=== PATIENT | male | born 1960 | race Caucasian/White ===

== ENCOUNTER → 2016-09-03 | Outpatient (CLI) | payer BC ==
[~2016-09-03] MED LIST: ALBU1AER9 INH; AMPH20TA2 PO; BUPR100T8 PO; FENT100D2 TD; LORA1TAB13 PO; OMEP20CA9 PO; OXYC-164 PO; TRAZ1TAB16 PO
== END | disposition home or self-care (01) ==
LOC: C.LAB1850 13:10
PROVIDERS: ATTEND Internal Medicine Endocrinology, Diabetes & Metabolism
DX: R53.83 Other fatigue (principal); E23.0 Hypopituitarism

== ENCOUNTER → 2016-09-30 | Outpatient (CLI) | payer BC ==
[~2016-09-30] MED LIST changes: +GADAVIST IV PRN
--- NOTE | 2016-09-30 18:24 | DIAGNOSTIC IMAGING REPORT ---
MRI THE PITUITARY WITHOUT AND WITH GADOLINIUM CLINICAL HISTORY: Pituitary hypogonadism COMPARISON STUDY: 09/05/2014 FINDINGS: Sagittal T1, pre and post gadolinium dynamic coronal T1, post gadolinium sagittal T1, and axial the FIESTA was obtained. The patient was administered 9.5 cc of intravenous Gadavist. The infundibulum is in the midline. The optic chiasm appears normal. The pituitary gland is not enlarged. There is an equivocal 2 mm focus of diminished enhancement involving the superior margin of the right-sided pituitary laterally. This is best visualized on the late phase postcontrast images. There is a partially empty sella. There is minor cerebellar tonsillar ectopia. There is a prominent cisterna magna. IMPRESSION: 1. No abnormalities the optic chiasm or infundibulum are visualized 2. Equivocal 2 mm focus of diminished enhancement involving the right superior lateral margin of the pituitary. This finding is of questionable clinical significance. Electronically signed by: Lorenzo Looney M.D. 09/30/2016 6:23 PM Dictated Date/Time: 09/30/2016 6:17 PM
== END | disposition home or self-care (01) ==
LOC: C.MRI 17:07
PROVIDERS: ATTEND Internal Medicine Endocrinology, Diabetes & Metabolism
DX: E23.0 Hypopituitarism (principal)

== ENCOUNTER → 2017-01-07 | Outpatient (CLI) | payer BC ==
[~2017-01-07] MED LIST changes: -GADAVIST IV PRN; +TRAZ-119 PO; -TRAZ1TAB16 PO
[2017-01-07 12:19] LABS: HEMATOCRIT 33.9 % (42-52); MEAN CELL VOLUME 85.2 fL (80-100); MEAN CORPUSCULAR HEMOGLOBIN 31.2 pg (25-34); MEAN CORPUSCULAR HGB CONC 36.6 g/dl (32-36); MEAN PLATELET VOLUME 8.7 fL (7.4-10.4); PLATELET COUNT 234 K/uL (130-400); RED BLOOD COUNT 3.98 M/uL (4.7-6.1); WHITE BLOOD COUNT 6.21 K/uL (4.8-10.8)
[2017-01-07 12:33] LABS: ESTIMATED AVERAGE GLUCOSE 186 mg/dl; HA1C FLAG Normal (Normal)
[2017-01-07 12:38] LABS: ALT/SGPT 27 U/L (12-78); BLOOD UREA NITROGEN 15 mg/dl (7-18); BUN/CREATININE RATIO 13.8 (10-20); CARBON DIOXIDE 28 mmol/L (21-32); CHLORIDE 100 mmol/L (98-107); GLUCOSE 205 mg/dl (70-99); POTASSIUM 3.8 mmol/L (3.5-5.1); SODIUM 136 mmol/L (136-145)
[2017-01-07 12:41] LABS: CALCIUM 9.2 mg/dl (8.5-10.1)
[2017-01-07 12:49] LABS: ALB/GLOB RATIO 1.1 (0.9-2); ALKALINE PHOSPHATASE 82 U/L (45-117); AST/SGOT 12 U/L (15-37)
[2017-01-11 15:25] LABS: ILGF1 Z SCORE MALE 0.1 SD (-2.0 - +2.0)
== END | disposition home or self-care (01) ==
LOC: C.LAB1850 10:30
PROVIDERS: ATTEND Internal Medicine
DX: E23.0 Hypopituitarism (principal); D35.00 Benign neoplasm of unspecified adrenal gland; G44.40 Drug-induced headache, not elsewhere classified, not intractable; E11.9 Type 2 diabetes mellitus without complications

== ENCOUNTER → 2017-12-19 | Outpatient (CLI) | payer BC ==
[2017-12-19 17:25] LABS: BASO % 1.1 %; BASO ABS # 0.07 K/uL (0-0.2); EOS % 6.4 %; EOS ABS # 0.41 K/uL (0-0.5); HEMATOCRIT 34.5 % (42-52); HEMOGLOBIN 12.9 g/dL (14.0-18.0); IG# 0.01 K/uL (0.00-0.02); LYMPH % 16.5 %; LYMPH ABS # 1.05 K/uL (1.2-3.4); MEAN CELL VOLUME 86.3 fL (80-100); MEAN CORPUSCULAR HEMOGLOBIN 32.3 pg (25-34); MEAN CORPUSCULAR HGB CONC 37.4 g/dl (32-36); MEAN PLATELET VOLUME 9.2 fL (7.4-10.4); MONO % 4.9 %; MONO ABS # 0.31 K/uL (0.11-0.59); NEUT % 70.9 %; NEUT ABS # 4.51 K/uL (1.4-6.5); PLATELET COUNT 230 K/uL (130-400); RED CELL DISTRIBUTION WIDTH CV 12.4 % (11.5-14.5); RED CELL DISTRIBUTION WIDTH SD 39.5 fL (36.4-46.3); WHITE BLOOD COUNT 6.36 K/uL (4.8-10.8)
[2017-12-19 17:52] LABS: ALBUMIN 4.1 gm/dl (3.4-5.0); ALT/SGPT 24 U/L (12-78); AST/SGOT 14 U/L (15-37); BLOOD UREA NITROGEN 16 mg/dl (7-18); CALCIUM 9.3 mg/dl (8.5-10.1); CARBON DIOXIDE 27 mmol/L (21-32); CHOLESTEROL 154 mg/dl (0-200); GLUCOSE 186 mg/dl (70-99); POTASSIUM 3.9 mmol/L (3.5-5.1); SODIUM 134 mmol/L (136-145)
[2017-12-19 17:54] LABS: ALKALINE PHOSPHATASE 102 U/L (45-117)
[2017-12-20 06:55] LABS: HEMOGLOBIN A1C 7.2 % (4.5-5.6)
== END | disposition home or self-care (01) ==
LOC: C.LAB1850 16:11
PROVIDERS: ATTEND Internal Medicine
DX: E11.9 Type 2 diabetes mellitus without complications (principal); D64.9 Anemia, unspecified

== ENCOUNTER 2023-12-19 14:47 | Inpatient (IN) ==
[2023-12-19 15:37] LABS: Basophils # (auto) 0.06 K/uL (0.00-0.20); Basophils % (auto) 1.4 %; Eosinophils # (auto) 0.13 K/uL (0.00-0.50); Eosinophils % (auto) 3.1 %; Hemoglobin 13.2 g/dl (14.0-18.0); Immature Granulocytes # (auto) 0.02 K/uL (0.01-0.20); Immature Granulocytes % (auto) 0.5 %; Lymphocytes # (auto) 0.95 K/uL (1.20-3.40); Lymphocytes % (auto) 22.9 %; Mean Corpuscular Hemoglobin 34.1 pg (25.0-34.0); Mean Corpuscular Hgb Conc 35.7 g/dL (32.0-36.0); Mean Corpuscular Volume 95.6 fL (80.0-100.0); Mean Platelet Volume 9.3 fL (9.4-12.4); Monocytes # (auto) 0.32 K/uL (0.11-0.59); Monocytes % (auto) 7.7 %; Neutrophils # (auto) 2.67 K/uL (1.40-6.50); Neutrophils % (auto) 64.4 %; Platelet Count 120 K/uL (130-400); RDW Coefficient of Variation 12.6 % (11.5-14.5); RDW Standard Deviation 44.1 fL (36.4-46.3); Red Blood Count 3.87 M/uL (4.70-6.10); White Blood Count 4.15 K/ul (4.8-10.8)
--- NOTE | 2023-12-19 15:37 | Emergency Department Note ---
Impression & Plan Acute pancreatitis, Alcohol withdrawal ED Provider Note HISTORY OF PRESENT ILLNESS: Patient is a 63-year-old male presenting with left flank pain. Patient reports that he was seen 2 weeks ago for similar symptoms. He states that his symptoms had resolved in the last 2 weeks, but starting 3 days ago he started having pain on his left mid back that wraps around his left flank. Denies any injury to the back or any falls. He denies any fevers. Denies any nausea or vomiting. Denies any diarrhea. Denies any dysuria or hematuria. He reports he took 600 mg of ibuprofen about an hour prior to arrival. He denies any bowel or bladder incontinence. Denies any numbness or tingling down his legs. Denies any leg weakness. He states the pain has been constant for the last 3 days. He states it feels like a sharp stabbing pain in his left mid back. ROS: as above PHYSICAL EXAM: Constitutional: Patient appears in no acute distress. HENT: Head: Normocephalic and atraumatic. Eyes: EOMI, PERRL Mouth/Throat: Mucous membranes moist. Neck: Trachea midline. Neck supple. Cardiovascular: RRR, No murmurs, rubs or gallops. Intact distal pulses. Pulmonary/Chest: No respiratory distress. Breath sounds clear and equal bilaterally. No wheezes or rales. Abdominal: Abdomen soft, no tenderness, rebound or guarding. Back: No midline spinal tenderness, no paraspinal tenderness, no CVA tenderness. No appreciable rashes on the back. Musculoskeletal: No edema, tenderness or deformity noted. Skin: Warm and dry. No rash, erythema, pallor or cyanosis Psychiatric: Appropriate mood and affect for situation. Neurological: Alert and keenly responsive. CN II-XII grossly intact, moving all extremities equally and fully. MDM: - Vitals signs showed hypertension - History obtained via patient. History as above. - Chronic conditions affecting care: GERD; adrenal cortical carcinoma - Differential diagnoses include, but are not limited to: UTI; pyelonephritis; ureteral stone; pancreatitis; colitis; musculoskeletal pain - Order placed for continuous cardiac monitoring. At this time, monitor showed rate of 90 bpm with normal sinus rhythm, per my interpretation. - External medical records reviewed. Primary care visit note dated 12/16/2023 was reviewed. Patient was seen in their clinic for an acute visit for postnasal drip. Also noted to have some right upper quadrant abdominal tenderness. - Laboratory workup interpreted by myself showed slight leukopenia (WBC 4.15); stable electrolytes; elevated lipase (128); elevated AST (60) - Patient given lidocaine patch and 1g IV tylenol for symptomatic management - CT abdomen/pelvis wo contrast showed mild inflammatory stranding around the pancreas concerning for potential pancreatitis. - On reassessment at 1855, patient reports he is an alcoholic and feels like he is starting to withdrawal. He is feeling nauseous and tremulous. Discussed results with the patient. He reports his pain is still present. Discussed admission to the hospital and potential formal alcohol withdrawal, which the patient would be very interested in doing formal detox. - Given 4 mg IV zofran, 1L NS and IV ativan ordered for withdrawal. - Discussion was had with case packer about patient's case and need for admission - Hospitalist consulted for admission - Patient admitted to [facility] for further evaluation and management. ASSESSMENT AND PLAN: Diagnosis: acute pancreatitis; alcohol withdrawal Plan: admit Past Med/Surg History Medical History (Updated 12/19/23 @ 19:05 by Sherri Mcmanus MD) GERD (gastroesophageal reflux disease) Adrenal cortical adenoma Surgical History History of repair of rotator cuff Left History of herniorrhaphy UMBILICAL Family History Aunt Breast cancer Father Prostate cancer Other No family history of adverse response to anesthesia Denies family history of Colon cancer Ovarian cancer Myocardial infarction Social History Smoking Status: Former smoker Tobacco Type: Cigarettes Age Started Using Tobacco: 11; Age Quit Using Tobacco: 58; packs per day: 0.25; Cigarettes Per Day: 2 CIGARETTES PER DAY at end, 2 pack a day for about 25 years; Second Hand Exposure: No; Do You Dip or Chew Tobacco: Yes (1 can every 3 days); Hx Alcohol Use: Yes Hx Substance Use: Yes (SUBOXONE PRESCRIBED) Last Used Substance Other:: was on fentanyl for chronic pain - weaned off fentanyl and put on suboxone Substance Use Type Other:: medical marijuana card Preferred Language: Barbadian Communication Ability: Effective 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: No Beliefs That Will Affect Care: None Current Living Situation: Spouse Feels Safe at Home: Yes Assistive Devices: Glasses Allergies Allergies Allergy/AdvReac Type Severity Reaction Status Date / Time labetalol Allergy Unknown Unknown Verified 12/19/23 17:39 methylprednisolone AdvReac Intermediate PSYCHOTIC Verified 12/19/23 17:39 FEATURES WITH HIGH DOSES prednisone AdvReac Intermediate PSYCHOTIC Verified 12/19/23 17:39 FEATURES WITH HIGH DOSES Home Meds Home Medications Medication Instructions Recorded Confirmed buprenorphine 8 mg-naloxone 2 mg 1 film buccal BID 08/11/18 12/19/23 sublingual film (Suboxone) cyanocobalamin (vitamin B-12) 1,000 mcg sublingual QAM 01/23/19 12/19/23 1,000 mcg sublingual tablet melatonin 10 mg capsule 10 mg PO HS PRN Sleep 10/30/19 12/19/23 bupropion HCl 100 mg tablet,12 hr 300 mg PO QAM 12/19/23 12/19/23 sustained-release clobetasol 0.05 % topical cream 1 applic topical DAILY PRN Skin 12/19/23 12/19/23 Irritation potassium gluconate 595 mg (99 mg) 595 mg PO DAILY 12/19/23 12/19/23 tablet Previous Rx's Medication Instructions Recorded albuterol sulfate 2.5 mg/3 mL 2.5 mg (3 mL) inhalation Q6H PRN 11/23/19 (0.083 %) solution for nebulization shortness of breath or wheezing #3 mL albuterol sulfate 90 mcg/actuation 2 puff inhalation Q6H PRN Wheezing 01/28/20 aerosol inhaler #6.7 grams testosterone See Rx Instructions transdermal 05/11/23 DAILY #75 grams sertraline 100 mg tablet (Zoloft) 150 mg (1.5 x 100 mg) PO QAM #135 06/02/23 tabs spironolactone 25 mg tablet 25 mg PO DAILY #90 tabs 06/09/23 (Aldactone) OneTouch Verio Flex meter #1 ea 06/10/23 (blood-glucose meter) atorvastatin 20 mg tablet 20 mg PO HS #90 tabs 07/04/23 lisinopril 40 mg tablet 40 mg PO DAILY #90 tabs 07/06/23 clonidine HCl 0.1 mg tablet 0.1 mg PO DAILY #30 tabs 08/23/23 insulin glargine 100 unit/mL (3 30 unit (0.3 mL) subcut HS #15 mL 09/12/23 mL) subcutaneous pen (Basaglar KwikPen U-100 Insulin) BD Ultra-Fine Mini Pen Needle 31 #100 ea 10/14/23 gauge x 3/16" (pen needle, diabetic) OneTouch Verio test strips (blood #50 ea 11/09/23 sugar diagnostic) fluticasone furoate 100 1 inh inhalation QAM #28 ea 11/09/23 mcg-vilanterol 25 mcg/dose inhalation powder (Breo Ellipta) tizanidine 2 mg capsule 2 mg PO Q12H PRN Muscle Spasm #180 11/17/23 caps ondansetron HCl 4 mg tablet 4 mg PO Q6H PRN nausea and 12/16/23 vomiting #15 tabs pantoprazole 40 mg tablet,delayed 40 mg PO DAILY #90 tabs 12/16/23 release Results & Data (ED) Vital Signs Vital Signs - 24 hr 12/19/23 14:55 12/19/23 15:27 12/19/23 15:29 Temperature 36.9 C Temperature Source Temporal Artery Scan Pulse Rate 87 79 80 Respiratory Rate 19 18 Respiratory Effort / Characteristics Non-Labored Spontaneous Respiratory Depth Normal Blood Pressure 162/73 H Blood Pressure Mean 102 Pulse Oximetry 96 Oxygen Delivery Method Room Air Sepsis Recent Fever Within 48 Hours No Sepsis New/Unexplained Change in Mental Status N/A Sepsis Action Taken by Nursing No Action Required 12/19/23 15:30 12/19/23 15:40 12/19/23 15:50 Temperature Temperature Source Pulse Rate 80 77 79 Respiratory Rate 22 16 15 Respiratory Effort / Characteristics Respiratory Depth Blood Pressure Blood Pressure Mean Pulse Oximetry Oxygen Delivery Method Sepsis Recent Fever Within 48 Hours Sepsis New/Unexplained Change in Mental Status Sepsis Action Taken by Nursing 12/19/23 16:00 12/19/23 16:10 12/19/23 16:30 Temperature Temperature Source Pulse Rate 82 81 82 Respiratory Rate 27 H 20 12 Respiratory Effort / Characteristics Respiratory Depth Blood Pressure Blood Pressure Mean Pulse Oximetry Oxygen Delivery Method Sepsis Recent Fever Within 48 Hours Sepsis New/Unexplained Change in Mental Status Sepsis Action Taken by Nursing 12/19/23 16:40 12/19/23 16:50 12/19/23 17:00 Temperature Temperature Source Pulse Rate 82 82 81 Respiratory Rate 17 18 14 Respiratory Effort / Characteristics Respiratory Depth Blood Pressure Blood Pressure Mean Pulse Oximetry Oxygen Delivery Method Sepsis Recent Fever Within 48 Hours Sepsis New/Unexplained Change in Mental Status Sepsis Action Taken by Nursing 12/19/23 17:10 12/19/23 17:20 12/19/23 17:25 Temperature Temperature Source Pulse Rate 81 83 Respiratory Rate 14 16 Respiratory Effort / Characteristics Respiratory Depth Blood Pressure 149/93 H Blood Pressure Mean 104 Pulse Oximetry Oxygen Delivery Method Sepsis Recent Fever Within 48 Hours Sepsis New/Unexplained Change in Mental Status Sepsis Action Taken by Nursing 12/19/23 17:25 12/19/23 17:30 12/19/23 17:40 Temperature Temperature Source Pulse Rate 81 82 81 Respiratory Rate 20 15 13 Respiratory Effort / Characteristics Respiratory Depth Blood Pressure Blood Pressure Mean Pulse Oximetry Oxygen Delivery Method Sepsis Recent Fever Within 48 Hours Sepsis New/Unexplained Change in Mental Status Sepsis Action Taken by Nursing 12/19/23 17:50 12/19/23 18:00 12/19/23 18:10 Temperature Temperature Source Pulse Rate 83 82 83 Respiratory Rate 17 18 24 Respiratory Effort / Characteristics Respiratory Depth Blood Pressure Blood Pressure Mean Pulse Oximetry Oxygen Delivery Method Sepsis Recent Fever Within 48 Hours Sepsis New/Unexplained Change in Mental Status Sepsis Action Taken by Nursing 12/19/23 18:20 12/19/23 18:30 12/19/23 18:40 Temperature Temperature Source Pulse Rate 82 85 90 Respiratory Rate 22 13 16 Respiratory Effort / Characteristics Respiratory Depth Blood Pressure Blood Pressure Mean Pulse Oximetry 95 Oxygen Delivery Method Sepsis Recent Fever Within 48 Hours Sepsis New/Unexplained Change in Mental Status Sepsis Action Taken by Nursing Laboratory Data 12/19/23 15:16 12/19/23 15:16 Lab Results 12/19/23 12/19/23 Range/Units 15:16 16:49 WBC 4.15 L (4.8-10.8) K/ul RBC 3.87 L (4.70-6.10) M/uL Hgb 13.2 L (14.0-18.0) g/dl Hct 37.0 L (42.0-52.0) % MCV 95.6 (80.0-100.0) fL MCH 34.1 H (25.0-34.0) pg MCHC 35.7 (32.0-36.0) g/dL RDW Std Deviation 44.1 (36.4-46.3) fL RDW Coeff of Sharona 12.6 (11.5-14.5) % Plt Count 120 L (130-400) K/uL MPV 9.3 L (9.4-12.4) fL Immature Gran % (Auto) 0.5 % Neut % (Auto) 64.4 % Lymph % (Auto) 22.9 % [place] % (Auto) 7.7 % Eos % (Auto) 3.1 % Baso % (Auto) 1.4 % Neut # (Auto) 2.67 (1.40-6.50) K/uL Lymph # (Auto) 0.95 L (1.20-3.40) K/uL [place] # (Auto) 0.32 (0.11-0.59) K/uL Eos # (Auto) 0.13 (0.00-0.50) K/uL Baso # (Auto) 0.06 (0.00-0.20) K/uL Immature Gran # (Auto) 0.02 (0.01-0.20) K/uL Sodium 139 (136-145) mmol/L Potassium 4.0 (3.5-5.1) mmol/L Chloride 101 (98-107) mmol/L Carbon Dioxide 29 (21-32) mmol/L Anion Gap 9 (3-11) BUN 12 (6-23) mg/dl Creatinine 0.89 (0.6-1.4) mg/dl Est Cr Clr Drug Dosing Not Reportable Est GFR ( Amer) 105.5 ml/min Est GFR (Non-Af Amer) 91.0 ml/min BUN/Creatinine Ratio 13.5 (10-20) Glucose 147 H (70-99(Fasting)) mg/dl Calcium 8.8 (8.6-10.3) mg/dl Total Bilirubin 0.7 (0.2-1.0) mg/dl AST 60 H (13-39) U/L ALT 41 (7-52) U/L Alkaline Phosphatase 78 (34-104) U/L Total Protein 7.0 (6.0-8.3) gm/dl Albumin 4.0 (3.4-5.0) gm/dl Globulin 3.0 (2.5-4.0) gm/dl Albumin/Globulin Ratio 1.3 (0.9-2) Lipase 128 H (11-82) U/L Ethyl Alcohol mg/dL 134.4 H (<10.0) mg/dl Administered Medications Discontinued Medications Acetaminophen (Ofirmev) 1,000 mg in 100 mls @ 400 mls/hr IV NOW STA Stop: 12/19/23 15:56 Last Infusion: 12/19/23 16:16 Dose: Infused Documented By: Admin: 12/19/23 15:52 Dose: 400 mls/hr Documented By: HS Lidocaine (Lidocaine 5% 1 Patch) 1 patch TD NOW STA Stop: 12/19/23 15:43 Last Admin: 12/19/23 15:52 Dose: 1 patch Documented By: HS Imaging Data Radiologist's Impression: Abdomen/Pelvis CT 12/19/23 15:[address] WITHOUT CONTRAST CT DOSE: 1353.86 mGy.cm HISTORY: Acute left-sided flank pain L flank pain TECHNIQUE: Multiaxial CT images of the abdomen and pelvis were performed without contrast. A dose lowering technique was utilized adhering to the principles of ALARA. COMPARISON STUDY: 11/13/2023, 06/15/2016 FINDINGS: Cardiomegaly with coronary arterial calcifications. Patchy groundglass and consolidative opacities in the right lung base again noted with areas of bronchial wall thickening. Mild left basilar atelectasis. There is no free air. The spleen is enlarged measuring up to 14 cm. The liver is enlarged measuring up to approximately 20 cm. Hepatic steatosis. No evidence of cirrhosis. Cholelithiasis without CT evidence of acute cholecystitis. Unremarkable adrenal glands. Mild inflammatory stranding near the mesenteric root/uncinate process. Cortical thinning of the kidneys with bilateral perinephric stranding. No hydronephrosis. Partial distention of the urinary bladder with mild wall thickening. Borderline enlarged prostate. Atherosclerosis of the aorta without aneurysm. Mild nonspecific distal esophageal wall thickening. No bowel traction. Colonic diverticulosis. Chronic likely benign fatty attenuating structure with calcifications measuring 2 cm noted adjacent to the distal descending colon. Mild colonic fecal retention. Normal appendix. No acute fracture. IMPRESSION: 1. No bowel obstruction or bowel wall thickening. 2. Right basilar opacities redemonstrated suggestive of aspiration pneumonitis. 3. Hepatosplenomegaly with hepatic steatosis. 4. Mild inflammatory stranding within the mesenteric root surrounding the uncinate process of the pancreas is likely secondary to a low-grade chronic mesenteritis. Correlate with lipase level to exclude the less likely possibility of acute pancreatitis. 5. Cholelithiasis. 6. Additional findings as above. ACT 112: Negative or not required by law. The above report was generated using voice recognition software. It may contain grammatical, syntax or spelling errors. Electronically signed by: Markus Epstein M.D. 12/19/2023 4:32 PM Discharge Plan Visit Data Chief Complaint: Back Injury/Pain Stated Complaint: BACK PAIN, UNABLE TO WALK AND STAND ED Provider: Sherri Mcmanus Discharge Problem: Acute pancreatitis, Alcohol withdrawal Forms Stand Alone Forms: My naaptol Prescriptions Prescriptions: No Action albuterol sulfate 90 mcg/actuation HFA aerosol inhaler 2 puff INHALATION Q6H PRN (Reason: Wheezing) Qty: 6.7 2RF testosterone 20.25 mg/1.25 gram (1.62 %) gel in metered-dose pump See Rx Instructions TD DAILY Qty: 75 5RF Dose Instruction: apply 3 pumps daily TD DAILY; Rx Instructions: apply 2 pumps daily 05/04/23 PDMP Queried ok to fill, TR sertraline [Zoloft] 100 mg tablet 150 mg PO QAM Qty: 135 1RF atorvastatin 20 mg tablet 20 mg PO HS Qty: 90 3RF lisinopril 40 mg tablet 40 mg PO DAILY Qty: 90 3RF clonidine HCl 0.1 mg tablet 0.1 mg PO DAILY Qty: 30 5RF insulin glargine [Basaglar KwikPen U-100 Insulin] 100 unit/mL (3 mL) insulin pen 30 unit SUBCUT HS Qty: 15 3RF (DME) pen needle, diabetic [BD Ultra-Fine Mini Pen Needle] 31 gauge x 3/16" needle See Rx Instructions .ROUTE .COMPLEX Qty: 100 1RF Dose Instruction: USE ONCE DAILY DIRECTED Rx Instructions: USE ONCE DAILY DIRECTED fluticasone furoate-vilanterol [Breo Ellipta] 100-25 mcg/dose blister with device 1 inh INH QAM Qty: 28 5RF (DME) OneTouch Verio test strips Strip See Rx Instructions .Route Qty: 50 5RF Rx Instructions: As directed to test blood sugar once a day; E11.9 tizanidine 2 mg capsule 2 mg PO Q12H PRN (Reason: Muscle Spasm) Qty: 180 1RF albuterol sulfate 2.5 mg /3 mL (0.083 %) solution for nebulization 2.5 mg INH Q6H PRN (Reason: shortness of breath or wheezing) Qty: 3 5RF cyanocobalamin (vitamin B-12) 1,000 mcg tablet, sublingual 1,000 mcg SL QAM melatonin 10 mg capsule 10 mg PO HS PRN (Reason: Sleep) spironolactone [Aldactone] 25 mg tablet 25 mg PO DAILY Qty: 90 3RF (DME) blood-glucose meter [StartSpanishuch Verio Flex meter] Misc See Rx Instructions .Route Qty: 1 0RF Rx Instructions: As directed to test blood sugar once a day; E11.9 pantoprazole 40 mg tablet,delayed release (DR/EC) 40 mg PO DAILY Qty: 90 3RF ondansetron HCl 4 mg tablet 4 mg PO Q6H PRN (Reason: nausea and vomiting) Qty: 15 0RF buprenorphine-naloxone [Suboxone] 8-2 mg Film 1 film BUCCAL BID potassium gluconate 595 mg (99 mg) Tablet 595 mg PO DAILY clobetasol 0.05 % cream 1 applic topical DAILY PRN (Reason: Skin Irritation) bupropion HCl 100 mg tablet sustained-release 12 hr 300 mg PO QAM Rx Instructions: TAKE 3 TABLETS BY MOUTH EVERY DAY IN THE MORNING Referrals Referrals: Xochitl Olmedo MD [Primary Care Provider] -
[2023-12-19] MEDS: ACETAMINOPHEN 1,000 MG/100 ML VIAL IV STA (15:52)
[2023-12-19] MEDS: LIDOCAINE 5% 1 PATCH TD STA (15:52)
[2023-12-19 15:56] LABS: Alanine Aminotransferase 41 U/L (7-52); Albumin Globulin Ratio 1.3 (0.9-2); Alkaline Phosphatase 78 U/L (34-104); Anion Gap 9 (3-11); Aspartate Aminotransferase 60 U/L (13-39); BUN Creatinine Ratio 13.5 (10-20); Bilirubin,Total 0.7 mg/dl (0.2-1.0); Blood Urea Nitrogen 12 mg/dl (6-23); Calcium 8.8 mg/dl (8.6-10.3); Carbon Dioxide 29 mmol/L (21-32); Chloride 101 mmol/L (98-107); Est GFR (African American) 105.5 ml/min; Glucose 147 mg/dl (70-99(Fasting)); Sodium 139 mmol/L (136-145)
--- NOTE | 2023-12-19 16:34 | CT Scan Report ---
ABDOMEN AND PELVIS CT WITHOUT CONTRAST CT DOSE: 1353.86 mGy.cm HISTORY: Acute left-sided flank pain L flank pain TECHNIQUE: Multiaxial CT images of the abdomen and pelvis were performed without contrast. A dose lo wering technique was utilized adhering to the principles of ALARA. COMPARISON STUDY: 11/13/2023, 06/15/2016 FINDINGS: Cardiomegaly with coronary arterial calcifications. Patchy groundglass and consolidative op acities in the right lung base again noted with areas of bronchial wall thickening. Mild left basilar atelectasis. There is no free air. The spleen is enlarged measuring up to 14 cm. The liver is enlarg ed measuring up to approximately 20 cm. Hepatic steatosis. No evidence of cirrhosis. Cholelithiasis w ithout CT evidence of acute cholecystitis. Unremarkable adrenal glands. Mild inflammatory stranding n ear the mesenteric root/uncinate process. Cortical thinning of the kidneys with bilateral perinephric stranding. No hydronephrosis. Partial dis tention of the urinary bladder with mild wall thickening. Borderline enlarged prostate. Atheroscleros is of the aorta without aneurysm. Mild nonspecific distal esophageal wall thickening. No bowel tracti on. Colonic diverticulosis. Chronic likely benign fatty attenuating structure with calcifications shelia suring 2 cm noted adjacent to the distal descending colon. Mild colonic fecal retention. Normal appen arnold. No acute fracture. IMPRESSION: 1. No bowel obstruction or bowel wall thickening. 2. Right basilar opacities redemonstrated suggestive of aspiration pneumonitis. 3. Hepatosplenomegaly with hepatic steatosis. 4. Mild inflammatory stranding within the mesenteric root surrounding the uncinate process of the dawson creas is likely secondary to a low-grade chronic mesenteritis. Correlate with lipase level to exclude the less likely possibility of acute pancreatitis. 5. Cholelithiasis. 6. Additional findings as above. ACT 112: Negative or not required by law. The above report was generated using voice recognition software. It may contain grammatical, syntax o r spelling errors. Electronically signed by: Markus Epstein M.D. 12/19/2023 4:32 PM
[2023-12-19 17:14] LABS: Lipase 128 U/L (11-82)
[2023-12-19] MEDS: SODIUM CHLORIDE 0.9% 1,000 ML IV ONE (19:21)
[2023-12-19] MEDS: THIAMINE HCL 100 MG in SYRINGE 9 ML IV SCH (19:21)
[2023-12-19] MEDS: MULTI-VITAMIN INFUSION 10 ML, THIAMINE HCL 100 MG, FOLIC ACID 1 MG in SODIUM CHLORIDE 0... IV ONE (19:21)
[2023-12-19] MEDS: FOLIC ACID 1 MG in SYRINGE 9.8 ML IV SCH (19:21)
[2023-12-19] MEDS: ONDANSETRON INJ 2 MG/ML 2 ML VIAL IV STA (19:22)
[2023-12-19] MEDS: LORazepam 1 MG in SYRINGE 0.5 ML IV PRN (19:22)
--- NOTE | 2023-12-19 19:24 | History & Physical Report ---
Date of Service December 19, 2023 Assessment & Plan (1) Alcohol withdrawal: Plan: Severe ETOH Withdrawal - Requests detox. - Etoh on admit 134.4 Patient drinking 1/5 of liquor per day for up to a year with no alcohol free days in over a year - Improved with ativan, at provider assessment is significantly tremulous and diaphoretic - Valium 10mg IV x1 frontload ordered for withdrawal sx. Up to 2 additional doses and then transition to a AWSS. If continues to worsen transferred to unit for Precedex adjunct. Considered phenobarbital for seizures/ETOH however patient had already received benzodiazepines while in the ER, patient thinks that he did well in the past as outpatient with withdrawal medications that were not phenobarbital and thinks that they may have been benzos that worked well for him several years ago. Improved after valium x1, although RR/O2 sat dropped. Will defer additional, continue awss, and if resp stable --> + librium taper - AWSS active protocol - High dose Thiamine, Folic acid, Banana bag ordered (2) Gastritis: Plan: Abdominal Pain, mesenteritis/gastritis vs pancreatitis 2/2 ETOH use - Suspect gastritis/mesenteritis with ETOH use. DDx includes etoh induced pancreatitis, although lipiase is minimally elevated for this and CT more consistent with enteritis - PPI dailys - NPO - Pepcid BID - IVFM - Advance diet as pain tolerates - Stool biofire pending (3) Acute pancreatitis: Plan: - within differential but less likely. As noted. (4) GERD (gastroesophageal reflux disease): Plan: - as noted (5) Diabetes mellitus type 2, controlled: Plan: DM2 - Glartin 30u HS dose reduced to 20u - SSI - BSG goal 110-150 (6) Arnold-Chiari malformation, type I: (7) Pneumonitis: Plan: Aspiration Pneumonitis - W/ aspiration events in the setting of etoh use - Afebrile, no leukocytosis Follow clinically if signs of pneumonia plan start Unasyn (8) Chronic pain: Plan: Hx chronic pain, opioid dependence - Continue suboxine - Continue clonidine DVT PPx: SCDs Dispo: PCU Diet: NPO, IVFM CODE: Full (9) COPD (chronic obstructive pulmonary disease): Plan: COPD - Continue inhaler/formulary equivalent - No wheezing on admission Plan DVT PPx: SCDs Dispo: PCU Diet: NPO, IVFM CODE: Full History of Present Illness Primary Care Provider: Xochitl Olmedo MD 63yo M with a PMHx of etoh abuse who presents with 2 weeks of intermittent Left abdominal and L flank pain which has worsened in the last 3 days. Ibuprofen 600mg use Feels that he is withdrawing, endorses nausea dn tremors. Requests detox. CT-A/p: 1. No bowel obstruction or bowel wall thickening. 2. Right basilar opacities redemonstrated suggestive of aspiration pneumonitis. 3. Hepatosplenomegaly with hepatic steatosis. 4. Mild inflammatory stranding within the mesenteric root surrounding the uncinate process of the pancreas is likely secondary to a low-grade chronic mesenteritis. Correlate with lipase level to exclude the less likely possibility of acute pancreatitis.5. Cholelithiasis. 6. Additional findings as above. Lipase 128 Seen at the bedside. Drinking 1/5th of liquor per day. Last time he went more than 1-2 days without ETOH was 'a very long time, over a year maybe years.' Mid left back pain or 1-2 weeks. Has not had pain like that before 2 weeks ago. No prior hisory of pancreatitis. No history of seizures. He has had withdrawal symptoms over the past few months in the mornings, that improve when he dirnks more alcohol No fever, chills, sweats Minimal cough, but has been more short of breath than normal. no chest pain or pressure. Endorses flank pain, in addition to this has some epigastric discomfort and nausea/dry heaves No diarrhea. + constipatoin Still takes clonidine for htn, and suboxone for chronic pain Hx of COPD well controlled. Quit smoking 1 month ago, smoked cigarettes for 'a very long time' about 1pack per week. Takes long acting insulin at night for DM. Started drinking again after had headaches related to a Adriana malformation and cyst, and drank because felt improved. Was seeing Dr. Yeung neurology. Allergies Allergy/AdvReac Type Severity Reaction Status Date / Time labetalol Allergy Unknown Unknown Verified 12/19/23 17:39 methylprednisolone AdvReac Intermediate PSYCHOTIC Verified 12/19/23 17:39 FEATURES WITH HIGH DOSES prednisone AdvReac Intermediate PSYCHOTIC Verified 12/19/23 17:39 FEATURES WITH HIGH DOSES Home Medications Medication Instructions Recorded Confirmed Type buprenorphine 8 mg-naloxone 2 mg 1 film buccal BID 08/11/18 12/19/23 History sublingual film (Suboxone) cyanocobalamin (vitamin B-12) 1,000 mcg sublingual QAM 01/23/19 12/19/23 History 1,000 mcg sublingual tablet melatonin 10 mg capsule 10 mg PO HS PRN Sleep 10/30/19 12/19/23 History albuterol sulfate 2.5 mg/3 mL 2.5 mg (3 mL) inhalation Q6H PRN 11/23/19 12/19/23 Rx (0.083 %) solution for nebulization shortness of breath or wheezing #3 mL albuterol sulfate 90 mcg/actuation 2 puff inhalation Q6H PRN Wheezing 01/28/20 12/19/23 Rx aerosol inhaler #6.7 grams testosterone See Rx Instructions transdermal 05/11/23 12/19/23 Rx DAILY #75 grams sertraline 100 mg tablet (Zoloft) 150 mg (1.5 x 100 mg) PO QAM #135 06/02/23 12/19/23 Rx tabs spironolactone 25 mg tablet 25 mg PO DAILY #90 tabs 06/09/23 12/19/23 Rx (Aldactone) OneTouch Verio Flex meter #1 ea 06/10/23 12/16/23 Rx (blood-glucose meter) atorvastatin 20 mg tablet 20 mg PO HS #90 tabs 07/04/23 12/19/23 Rx lisinopril 40 mg tablet 40 mg PO DAILY #90 tabs 07/06/23 12/19/23 Rx clonidine HCl 0.1 mg tablet 0.1 mg PO DAILY #30 tabs 08/23/23 12/19/23 Rx insulin glargine 100 unit/mL (3 30 unit (0.3 mL) subcut HS #15 mL 09/12/23 12/19/23 Rx mL) subcutaneous pen (Basaglar KwikPen U-100 Insulin) BD Ultra-Fine Mini Pen Needle 31 #100 ea 10/14/23 12/16/23 Rx gauge x 3/16" (pen needle, diabetic) OneTouch Verio test strips (blood #50 ea 11/09/23 12/16/23 Rx sugar diagnostic) fluticasone furoate 100 1 inh inhalation QAM #28 ea 11/09/23 12/19/23 Rx mcg-vilanterol 25 mcg/dose inhalation powder (Breo Ellipta) tizanidine 2 mg capsule 2 mg PO Q12H PRN Muscle Spasm #180 11/17/23 12/19/23 Rx caps ondansetron HCl 4 mg tablet 4 mg PO Q6H PRN nausea and 12/16/23 12/19/23 Rx vomiting #15 tabs pantoprazole 40 mg tablet,delayed 40 mg PO DAILY #90 tabs 12/16/23 12/19/23 Rx release bupropion HCl 100 mg tablet,12 hr 300 mg PO QAM 12/19/23 12/19/23 History sustained-release clobetasol 0.05 % topical cream 1 applic topical DAILY PRN Skin 12/19/23 12/19/23 History Irritation potassium gluconate 595 mg (99 mg) 595 mg PO DAILY 12/19/23 12/19/23 History tablet Past Med/Surg History Problem List (Updated 12/20/23 @ 13:01 by Joby Sanderson MD) COPD (chronic obstructive pulmonary disease) Pneumonitis Gastritis Alcohol withdrawal (Acute) Acute pancreatitis (Acute) GERD (gastroesophageal reflux disease) Chronic constipation Hypogonadotropic hypogonadism in male Diabetes mellitus type 2, controlled Hyperlipidemia Hypertension Subclinical hypothyroidism Obesity Depression with anxiety Attention deficit disorder without hyperactivity History of alcohol abuse History of drug dependence Disc degeneration, lumbar Chronic mixed headache syndrome Cervical herniated disc Arnold-Chiari malformation, type I Arachnoid cyst Anemia Chronic pain Extrinsic asthma Low back pain Post traumatic stress disorder Medical History (Updated 12/20/23 @ 13:01 by Joby Sanderson MD) Adrenal cortical adenoma Surgical History History of repair of rotator cuff Left History of herniorrhaphy UMBILICAL Family History Aunt Breast cancer Father Prostate cancer Other No family history of adverse response to anesthesia Denies family history of Colon cancer Ovarian cancer Myocardial infarction Social History Smoking Status: Former smoker Tobacco Type: Cigarettes and Smokeless Tobacco (Dip or Chew) Age Started Using Tobacco: 11; Age Quit Using Tobacco: 58; packs per day: 0.25; Cigarettes Per Day: 2 CIGARETTES PER DAY at end, 2 pack a day for about 25 years; Second Hand Exposure: No; Do You Dip or Chew Tobacco: Yes; Hx Alcohol Use: Yes Alcohol type: hard liquor Hx Substance Use: Yes (SUBOXONE PRESCRIBED) Last Used Substance Other:: was on fentanyl for chronic pain - weaned off fentanyl and put on suboxone Substance Use Type Other:: medical marijuana card Preferred Language: Taiwanese Communication Ability: Effective Manager Wound Required: No Beliefs That Will Affect Care: None Current Living Situation: Spouse and Family Feels Safe at Home: Yes Assistive Devices: Cane and Nebulizer Physical Exam Physical Exam: General: A&Ox3. NAD. Cooperative. SKin warm, moist. Tremulous HEENT: Atraumatic, normocephalic. PERLAA Pulm: CTAB A&P. -wheezes, -rales, -rhonchi. Symmetrical chest rise. No increased work of breathing. No respiratory distress. Cardiac: RRR, -mrg. Radial pulses intact and symmetrical. Abdominal: mild epigastric TTP, some LLQ pain on palp. nondistended, soft. BS present. Ext: tremulous. Moves all extremities equally Results & Data Results & Data Vital Signs (Past 12 Hours) Vital Signs Temp Pulse Resp BP Pulse Ox O2 Del Method 12/19/23 18:40 90 16 95 12/19/23 18:30 85 13 12/19/23 18:20 82 22 12/19/23 18:10 83 24 12/19/23 18:00 82 18 12/19/23 17:50 83 17 12/19/23 17:40 81 13 12/19/23 17:30 82 15 12/19/23 17:25 81 20 12/19/23 17:25 149/93 H 12/19/23 17:20 83 16 12/19/23 17:10 81 14 12/19/23 17:00 81 14 12/19/23 16:50 82 18 12/19/23 16:40 82 17 12/19/23 16:30 82 12 12/19/23 16:10 81 20 12/19/23 16:00 82 27 H 12/19/23 15:50 79 15 12/19/23 15:40 77 16 12/19/23 15:30 80 22 12/19/23 15:29 80 12/19/23 15:27 79 18 12/19/23 14:55 36.9 C 87 19 162/73 H 96 Room Air PG Care Time/CCT Total # of Minutes Spent Total Time Spent with Patient: Total time spent is greater than 50% in coordination of care (as documented) at patient's floor/unit and/or counseling patient: Coding Level of Care Code 15048 INT INP/OBS CARE 3/75MIN Diagnoses Alcohol withdrawal F10.939 Gastritis K29.70 Acute pancreatitis K85.90 GERD (gastroesophageal reflux disease) K21.9 Controlled type 2 diabetes mellitus with microalbuminuria, with long-term current use of insulin E11.29; R80.9; Z79.4 Diabetes mellitus complication detail: with microalbuminuria Diabetes mellitus complication status: with kidney complications Diabetes mellitus continuous churn buttermaker insulin use: with continuous churn buttermaker use Arnold-Chiari malformation, type I G93.5 Pneumonitis J98.4 Chronic pain G89.29 COPD (chronic obstructive pulmonary disease) J44.9 (5) Diabetes mellitus type 2, controlled Diabetes mellitus complication detail: with microalbuminuria Diabetes mellitus complication status: with kidney complications Diabetes mellitus continuous churn buttermaker insulin use: with assisted use Qualified Code(s): E11.29 - Type 2 diabetes mellitus with other diabetic kidney complication; R80.9 - Proteinuria, unspecified; Z79.4 - superintendent terminal (current) use of insulin
[2023-12-19] MEDS: cloNIDine HCL 0.1 MG TAB PO STA (19:57)
[2023-12-19] MEDS: diazePAM 5 MG/ML 10ML VIAL IV STA (20:00)
[2023-12-19] MEDS ORDERED: diazePAM 5 MG/ML 10ML VIAL IV PRN (20:03)
[2023-12-19] MEDS ORDERED: Ativan IV Alcohol Withdrawal--Active Protocol IV PRN (20:04)
[2023-12-19] MEDS ORDERED: GLUCOSE 40% GEL 15 GM TUBE PO PRN (20:14)
[2023-12-19] MEDS ORDERED: GLUCAGON FOR INJ 1 MG VIAL SQ PRN (20:14)
[2023-12-19] MEDS ORDERED: DEXTROSE 50% 50 ML SYRINGE IV PRN (20:14)
[2023-12-19] MEDS ORDERED: GLUCOSE 10 TAB/TUBE PO PRN (20:14)
[2023-12-19] MEDS ORDERED: CARBOHYDRATES FOR HYPOGLYCEMIA PO PRN (20:14)
[2023-12-19] MEDS: INSULIN ASPART PER UNIT CHARGE SC SCH (20:41)
[2023-12-19] MEDS: THIAMINE HCL 300 MG in SODIUM CHLORIDE 0.9% 50 ML IV STA (20:44)
[2023-12-19] MEDS ORDERED: POLYETHYLENE (MIRALAX) 17 GM PACK PO PRN (21:29)
[2023-12-19] MEDS ORDERED: ONDANSETRON INJ 2 MG/ML 2 ML VIAL IV PRN (21:29)
[2023-12-19] MEDS: THIAMINE HCL 500 MG in SODIUM CHLORIDE 0.9% 50 ML IV STA (21:55)
[2023-12-19] MEDS: LACTATED RINGER'S 1,000 ML IV SCH (22:01)
[2023-12-19] MEDS: BUPRENORPHINE/NALOXONE 8/2 MG TAB SL SCH (22:02)
[2023-12-19] MEDS: LANTUS PER UNIT CHARGE SQ SCH (22:02)
[2023-12-20] MEDS: LORazepam 3 MG in SYRINGE 1.5 ML IV PRN ×2 (01:26→08:25)
[2023-12-20] MEDS ORDERED: LORazepam 2 MG in SYRINGE 1 ML IV PRN (01:46)
[2023-12-20] MEDS ORDERED: LORazepam 3 MG in SYRINGE 1.5 ML IV PRN (01:46)
[2023-12-20] MEDS ORDERED: Ativan IV Alcohol Withdrawal--Active Protocol IV PRN ×2 (01:46→08:05)
[2023-12-20] MEDS ORDERED: LORazepam 1 MG in SYRINGE 0.5 ML IV PRN (01:46)
[2023-12-20 01:55] LABS: Appearance Urine Clear (Clear); Bacteria Urine Automated None Seen (None Seen); Bilirubin Urine Negative (Negative); Blood Urine Negative (Negative); Cast Urine Automated 0-2 /lpf (0-2); Color Urine Yellow; Epithelial Cell Urine Auto 0-2 /hpf (0-2); Glucose Urine UA Negative (Negative); Ketones Urine Trace (Negative); Leukocyte Esterase Urine Negative (Negative); Nitrite Urine Negative (Negative); Protein Urine Trace (Negative); RBC Urine Automated 0-2 /hpf (0-2); Specific Gravity Urine 1.022 (1.000-1.030); Urobilinogen Urine Negative (Negative); WBC Urine Automated 0-5 /hpf (0-5); pH Urine 6.5 (4.5-7.5)
[2023-12-20] MEDS: LORazepam 2 MG in SYRINGE 1 ML IV PRN ×2 (03:44→10:01)
[2023-12-20] MEDS: LORazepam 1 MG in SYRINGE 0.5 ML IV PRN ×2 (04:36→20:12)
[2023-12-20 06:06] LABS: Basophils # (auto) 0.04 K/uL (0.00-0.20); Eosinophils # (auto) 0.15 K/uL (0.00-0.50); Eosinophils % (auto) 3.9 %; Hematocrit (blood only) 36.6 % (42.0-52.0); Hemoglobin 12.9 g/dl (14.0-18.0); Immature Granulocytes # (auto) 0.03 K/uL (0.01-0.20); Immature Granulocytes % (auto) 0.8 %; Lymphocytes # (auto) 0.76 K/uL (1.20-3.40); Lymphocytes % (auto) 19.5 %; Mean Corpuscular Hemoglobin 33.3 pg (25.0-34.0); Mean Corpuscular Hgb Conc 35.2 g/dL (32.0-36.0); Mean Corpuscular Volume 94.6 fL (80.0-100.0); Mean Platelet Volume 9.4 fL (9.4-12.4); Monocytes # (auto) 0.32 K/uL (0.11-0.59); Monocytes % (auto) 8.2 %; Neutrophils # (auto) 2.59 K/uL (1.40-6.50); Neutrophils % (auto) 66.6 %; Platelet Count 109 K/uL (130-400); RDW Coefficient of Variation 12.4 % (11.5-14.5); RDW Standard Deviation 43.1 fL (36.4-46.3); Red Blood Count 3.87 M/uL (4.70-6.10); White Blood Count 3.89 K/ul (4.8-10.8)
[2023-12-20 06:58] LABS: BUN Creatinine Ratio 13.5 (10-20); Calcium 8.5 mg/dl (8.6-10.3); Creatinine Clr Calc Pharmacy 119.5 ml/min; Est GFR (African American) 113.8 ml/min; Est GFR (Non-African American) 98.2 ml/min; Potassium 3.9 mmol/L (3.5-5.1)
[2023-12-20] MEDS ORDERED: GABAPENTIN 1200MG ALCOHOL WITHDRAWAL LOAD PO STA (08:00)
[2023-12-20] MEDS: GABAPENTIN 600 MG TAB PO ONE (08:26)
[2023-12-20] MEDS: cloNIDine HCL 0.1 MG TAB PO SCH (08:29)
[2023-12-20] MEDS: lisinopril 40 MG TAB PO SCH (08:29)
[2023-12-20] MEDS: SPIRONOLACTONE 25 MG TAB PO SCH (08:29)
[2023-12-20] MEDS: buPROPion XL 300 MG TABCR PO SCH (08:29)
[2023-12-20] MEDS: SERTRALINE HCL 50 MG TABLET PO SCH (08:30)
[2023-12-20] MEDS: FLUTICASONE/VILANTEROL 100/25MCG 14 PUFFS/INHALER INH SCH (08:36)
[2023-12-20] MEDS ORDERED: FOLIC ACID 1 MG in SYRINGE 9.8 ML IV SCH (09:00)
[2023-12-20] MEDS ORDERED: THIAMINE HCL 100 MG in SYRINGE 9 ML IV SCH (09:00)
[2023-12-20] MEDS: METOPROLOL TARTRATE 1 MG/ML VIAL IV PRN (11:29)
--- NOTE | 2023-12-20 11:39 | Hospitalist Progress Note ---
Date of Service December 20, 2023 Assessment & Plan (1) Alcohol withdrawal: Plan: Severe ETOH Withdrawal on admission with patient requesting detox. - Patient drinking 1/5 of liquor per day for up to a year with no alcohol free days in over a year - Etoh on admit 134.4 - Patient was significantly tremulous and diaphoretic on admission - AWSS Ativan, gabapentin, Librium protocols - Continue thiamine and folic acid IV every morning - Continue clonidine for hypertension - Hydralazine as needed with hypertension parameters - Metoprolol as needed with tachycardia and hypertension parameters - Zofran as needed for nausea (2) Gastritis: Plan: Abdominal Pain, mesenteritis/gastritis vs pancreatitis 2/2 ETOH use - Suspect gastritis/mesenteritis with ETOH use. DDx includes etoh induced pancreatitis, although lipiase is minimally elevated for this and CT more consistent with enteritis - PPI dailys - NPO - Pepcid BID - IVFM - Advance diet as pain tolerates - Stool biofire pending, still on collected 12/20/2023 (3) Pneumonitis: Plan: Aspiration Pneumonitis - W/ aspiration events in the setting of etoh use - Afebrile, no leukocytosis - Follow clinically if signs of pneumonia, start Unasyn (4) Diabetes mellitus type 2, controlled: Plan: - Glartin 30u HS dose reduced to 20u - SSI - BSG goal 110-150 (5) COPD (chronic obstructive pulmonary disease): Plan: - Continue inhaler/formulary equivalent - No wheezing on admission (6) Chronic pain: Plan: Hx chronic pain, opioid dependence - Continue suboxine - Continue clonidine (7) Arnold-Chiari malformation, type I: Plan: Noted Plan Ordered AWSS Ativan, gabapentin, Librium protocols Closely monitored blood pressures DVT PPx: SCDs CODE STATUS: Full code Admission and Anticipated Discharge Date Admission Date: December 19, 2023 Subjective Patient seen and evaluated at bedside. He reports feeling very anxious and feels himself getting more confused as the morning progresses. He has tremors. Blood pressure elevated. After gabapentin, Librium, hydralazine added to regimen, patient stabilized and sleeping comfortably. Physical Exam Physical Exam: General: No acute distress, nondiaphoretic, well-developed, well-nourished. Positive tremors. Skin: The skin was without rashes, erythema, edema, or bruising. Cardiac: Regular rate and rhythm without murmurs gallops or rubs. Pulm: Clear to auscultation bilaterally without wheezes, rales or rhonchi. No retractions or accessory muscle use. Abdominal: Positive bowel sounds x 4. Soft, without masses or organomegaly. Mild epigastric and left-sided tenderness to palpation. Neuro: A&O x3. No focal neurological deficits. Results & Data Results & Data Vital Signs (Past 12 Hours) Vital Signs Temp Pulse Pulse Resp BP BP BP 12/20/23 11:29 104 H 161/110 H 12/20/23 11:06 37.2 C 94 H 19 161/110 H 12/20/23 10:33 37.1 C 96 H 22 164/106 H 12/20/23 09:40 37.1 C 95 H 18 194/111 H 12/20/23 08:08 98 H 190/106 H 12/20/23 07:25 36.7 C 82 15 181/111 H 12/20/23 04:28 36.9 C 77 14 181/103 H 12/20/23 03:29 36.8 C 79 18 188/110 H 12/20/23 01:55 37.0 C 72 19 159/125 H 12/20/23 01:14 37.1 C 78 19 169/107 H 12/19/23 23:37 36.8 C 94 H 25 H 171/89 H Pulse Ox O2 Del Method O2 Flow Rate 12/20/23 11:29 12/20/23 11:06 95 Room Air 12/20/23 10:33 95 Room Air 12/20/23 09:40 96 Room Air 12/20/23 08:08 12/20/23 07:25 92 Room Air 12/20/23 04:28 12/20/23 03:29 96 Room Air 12/20/23 01:55 12/20/23 01:14 12/19/23 23:37 98 Nasal Cannula 3 Laboratory Results Reviewed CBC Reviewed BMP Reviewed UA PG Care Time/CCT Total # of Minutes Spent Total Time Spent with Patient: Total time spent is greater than 50% in coordination of care (as documented) at patient's floor/unit and/or counseling patient: Coding Level of Care Code 49873 SUB INP/OBS CARE 3/50MIN Diagnoses Alcohol withdrawal F10.939 Gastritis K29.70 Pneumonitis J98.4 Controlled type 2 diabetes mellitus with microalbuminuria, with long-term current use of insulin E11.29; R80.9; Z79.4 Diabetes mellitus complication detail: with microalbuminuria Diabetes mellitus complication status: with kidney complications Diabetes mellitus [facility] insulin use: with emt intermediate use COPD (chronic obstructive pulmonary disease) J44.9 Chronic pain G89.29 Arnold-Chiari malformation, type I G93.5 (4) Diabetes mellitus type 2, controlled Diabetes mellitus complication detail: with microalbuminuria Diabetes mellitus complication status: with kidney complications Diabetes mellitus emt intermediate insulin use: with [facility] use Qualified Code(s): E11.29 - Type 2 diabetes mellitus with other diabetic kidney complication; R80.9 - Proteinuria, unspecified; Z79.4 - nursing home (current) use of insulin
[2023-12-20] MEDS ORDERED: chlordiazePOXIDE ALCOHOL WITHDRAWL 25MG PO STA (11:52)
[2023-12-20] MEDS: hydrALAZINE HCL 20 MG/ML VIAL IV PRN (12:39)
[2023-12-20] MEDS: chlordiazePOXIDE HCl 25 MG CAP PO SCH (13:16)
[2023-12-20] MEDS: GABAPENTIN 600 MG TAB PO SCH (14:05)
[2023-12-21] MEDS: GABAPENTIN 600 MG TAB PO SCH (04:19)
[2023-12-21 06:18] LABS: Basophils # (auto) 0.03 K/uL (0.00-0.20); Basophils % (auto) 0.7 %; Eosinophils # (auto) 0.15 K/uL (0.00-0.50); Eosinophils % (auto) 3.4 %; Hematocrit (blood only) 37.2 % (42.0-52.0); Hemoglobin 13.1 g/dl (14.0-18.0); Immature Granulocytes # (auto) 0.02 K/uL (0.01-0.20); Immature Granulocytes % (auto) 0.5 %; Lymphocytes # (auto) 0.91 K/uL (1.20-3.40); Lymphocytes % (auto) 20.9 %; Mean Corpuscular Hemoglobin 33.6 pg (25.0-34.0); Mean Corpuscular Hgb Conc 35.2 g/dL (32.0-36.0); Mean Corpuscular Volume 95.4 fL (80.0-100.0); Mean Platelet Volume 9.8 fL (9.4-12.4); Monocytes # (auto) 0.45 K/uL (0.11-0.59); Monocytes % (auto) 10.3 %; Neutrophils % (auto) 64.2 %; Platelet Count 127 K/uL (130-400); RDW Coefficient of Variation 12.5 % (11.5-14.5); RDW Standard Deviation 43.7 fL (36.4-46.3); White Blood Count 4.36 K/ul (4.8-10.8)
[2023-12-21 06:25] LABS: Calcium 9.3 mg/dl (8.6-10.3); Creatinine Clr Calc Pharmacy 100.9 ml/min; Est GFR (African American) 106.5 ml/min; Est GFR (Non-African American) 91.9 ml/min; Potassium 4.3 mmol/L (3.5-5.1)
[2023-12-21] MEDS: chlordiazePOXIDE HCl 25 MG CAP PO SCH (15:25)
--- NOTE | 2023-12-21 17:46 | Hospitalist Progress Note ---
Date of Service December 21, 2023 Assessment & Plan (1) Alcohol withdrawal: Plan: Severe ETOH Withdrawal on admission with patient requesting detox. - Patient drinking 1/5 of liquor per day for up to a year with no alcohol free days in over a year - Etoh on admit 134.4 - Patient was significantly tremulous and diaphoretic on admission - AWSS Ativan, gabapentin, Librium protocols - Continue thiamine and folic acid IV every morning - Continue clonidine for hypertension - Hydralazine as needed with hypertension parameters - Metoprolol as needed with tachycardia and hypertension parameters - Zofran as needed for nausea (2) Gastritis: Plan: Abdominal Pain, mesenteritis/gastritis vs pancreatitis 2/2 ETOH use - Suspect gastritis/mesenteritis with ETOH use. DDx includes etoh induced pancreatitis, although lipiase is minimally elevated for this and CT more consistent with enteritis - PPI dailys - NPO - Pepcid BID - IVFM - Advance diet as pain tolerates - Stool biofire pending, still uncollected 12/21/2023 (3) Pneumonitis: Plan: Aspiration Pneumonitis - W/ aspiration events in the setting of etoh use - Afebrile, no leukocytosis - Follow clinically if signs of pneumonia, start Unasyn (4) Diabetes mellitus type 2, controlled: Plan: - Glartin 30u HS dose reduced to 20u - SSI - BSG goal 110-150 (5) COPD (chronic obstructive pulmonary disease): Plan: - Continue inhaler/formulary equivalent - No wheezing on admission (6) Chronic pain: Plan: Hx chronic pain, opioid dependence - Continue suboxine - Continue clonidine (7) Arnold-Chiari malformation, type I: Plan: Noted Plan Closely monitored blood pressures DVT PPx: SCDs CODE STATUS: Full code Admission and Anticipated Discharge Date Admission Date: December 19, 2023 Subjective Patient seen and evaluated at bedside. He continues to have tremors. He is reports he was quite diaphoretic overnight, however that has since resolved. He is fully oriented. He verbalizes an understanding that this is the worst part and wishes to continue through detox with the hopes of being abstinent from alcohol after this. He reports that his appetite is okay and he had his breakfast and lunch so far today. He denies any abdominal or back pain today. He has no complaints at this time. Physical Exam Physical Exam: General: Positive tremors, nondiaphoretic, well-developed, well-nourished. Skin: The skin was without rashes, erythema, edema, or bruising. Cardiac: Regular rate and rhythm without murmurs gallops or rubs. Pulm: Clear to auscultation bilaterally without wheezes, rales or rhonchi. Some diminished breath sounds in the lower lobes bilaterally. No retractions or accessory muscle use. Abdominal: Positive bowel sounds x 4. Soft, without masses or organomegaly. Mild epigastric and left-sided tenderness to palpation. Neuro: A&O x3. No focal neurological deficits. Results & Data Results & Data Vital Signs (Past 12 Hours) Vital Signs Temp Pulse Pulse Resp BP BP BP 12/21/23 16:49 89 12/21/23 15:12 37.0 C 92 H 23 171/105 H 12/21/23 13:44 95 H 160/105 H 12/21/23 13:29 95 H 157/104 H 12/21/23 13:04 157/107 H 12/21/23 10:42 36.9 C 102 H 23 175/111 H 12/21/23 08:09 37.2 C 98 H 22 174/104 H 12/21/23 08:00 80 12/21/23 08:00 Pulse Ox O2 Del Method 12/21/23 16:49 12/21/23 15:12 92 Room Air 12/21/23 13:44 12/21/23 13:29 12/21/23 13:04 12/21/23 10:42 96 Room Air 12/21/23 08:09 94 Room Air 12/21/23 08:00 12/21/23 08:00 Room Air Laboratory Results Reviewed CBC Reviewed BMP PG Care Time/CCT Total # of Minutes Spent Total Time Spent with Patient: Total time spent is greater than 50% in coordination of care (as documented) at patient's floor/unit and/or counseling patient: Coding Level of Care Code 47638 SUB INP/OBS CARE 2/35MIN Diagnoses Alcohol withdrawal F10.939 Gastritis K29.70 Pneumonitis J98.4 Controlled type 2 diabetes mellitus with microalbuminuria, with long-term current use of insulin E11.29; R80.9; Z79.4 Diabetes mellitus complication detail: with microalbuminuria Diabetes mellitus complication status: with kidney complications Diabetes mellitus senior living insulin use: with motor bus driver use COPD (chronic obstructive pulmonary disease) J44.9 Chronic pain G89.29 Arnold-Chiari malformation, type I G93.5 (4) Diabetes mellitus type 2, controlled Diabetes mellitus complication detail: with microalbuminuria Diabetes mellitus complication status: with kidney complications Diabetes mellitus motor bus driver insulin use: with motor bus driver use Qualified Code(s): E11.29 - Type 2 diabetes mellitus with other diabetic kidney complication; R80.9 - Proteinuria, unspecified; Z79.4 - long-term (current) use of insulin
[2023-12-22 06:18] LABS: Basophils # (auto) 0.05 K/uL (0.00-0.20); Basophils % (auto) 1.3 %; Eosinophils # (auto) 0.15 K/uL (0.00-0.50); Eosinophils % (auto) 3.8 %; Hematocrit (blood only) 39.4 % (42.0-52.0); Hemoglobin 13.9 g/dl (14.0-18.0); Immature Granulocytes # (auto) 0.02 K/uL (0.01-0.20); Immature Granulocytes % (auto) 0.5 %; Lymphocytes # (auto) 0.74 K/uL (1.20-3.40); Lymphocytes % (auto) 18.6 %; Mean Corpuscular Hemoglobin 33.7 pg (25.0-34.0); Mean Corpuscular Hgb Conc 35.3 g/dL (32.0-36.0); Mean Corpuscular Volume 95.6 fL (80.0-100.0); Mean Platelet Volume 9.4 fL (9.4-12.4); Monocytes # (auto) 0.41 K/uL (0.11-0.59); Monocytes % (auto) 10.3 %; Neutrophils # (auto) 2.61 K/uL (1.40-6.50); Neutrophils % (auto) 65.5 %; Platelet Count 140 K/uL (130-400); RDW Coefficient of Variation 12.6 % (11.5-14.5); RDW Standard Deviation 44.2 fL (36.4-46.3); Red Blood Count 4.12 M/uL (4.70-6.10); White Blood Count 3.98 K/ul (4.8-10.8)
[2023-12-22 06:39] LABS: BUN Creatinine Ratio 9.8 (10-20); Calcium 9.8 mg/dl (8.6-10.3); Creatinine Clr Calc Pharmacy 106.4 ml/min; Est GFR (African American) 109.1 ml/min; Est GFR (Non-African American) 94.1 ml/min; Potassium 3.8 mmol/L (3.5-5.1)
[2023-12-22] MEDS: GABAPENTIN 600 MG TAB PO SCH (08:29)
[2023-12-22] MEDS: chlordiazePOXIDE HCl 25 MG CAP PO SCH (13:47)
[2023-12-22] MEDS: NICOTINE 21 MG/24 HR TDSY TD SCH (15:08)
--- NOTE | 2023-12-22 18:11 | Hospitalist Progress Note ---
Date of Service December 22, 2023 Assessment & Plan (1) Alcohol withdrawal: Plan: Severe ETOH Withdrawal on admission with patient requesting detox. - Patient drinking 1/5 of liquor per day for up to a year with no alcohol free days in over a year - Etoh on admit 134.4 - Patient was significantly tremulous and diaphoretic on admission - AWSS Ativan, gabapentin protocols - Librium 25 mg Q8H --> decrease as indicated with withdrawal improvement - Continue thiamine and folic acid IV every morning - Continue clonidine for hypertension - Hydralazine as needed with hypertension parameters - Metoprolol as needed with tachycardia and hypertension parameters - Zofran as needed for nausea - Nicotine patch for nicotine withdrawal (2) Gastritis: Plan: Abdominal Pain, mesenteritis/gastritis vs pancreatitis 2/2 ETOH use - Suspect gastritis/mesenteritis with ETOH use. DDx includes etoh induced pancreatitis, although lipiase is minimally elevated for this and CT more consistent with enteritis - PPI daily - Pepcid BID - Stool biofire pending, still uncollected 12/22/2023 (3) Pneumonitis: Plan: Aspiration Pneumonitis - W/ aspiration events in the setting of etoh use - Afebrile, no leukocytosis - Follow clinically if signs of pneumonia, start Unasyn (4) Diabetes mellitus type 2, controlled: Plan: - Glartin 30u HS dose reduced to 20u - SSI - BSG goal 110-150 (5) COPD (chronic obstructive pulmonary disease): Plan: - Continue inhaler/formulary equivalent - No wheezing on admission (6) Chronic pain: Plan: Hx chronic pain, opioid dependence - Continue suboxine - Continue clonidine (7) Arnold-Chiari malformation, type I: Plan: Noted Plan Updated patient's and daughter at bedside Ordered nicotine patch Updated Librium ordered DVT PPx: SCDs CODE STATUS: Full code Admission and Anticipated Discharge Date Admission Date: December 19, 2023 Subjective Patient seen and evaluated at bedside with and daughter. He reports some anxiety and frustration, but notes that he is doing slightly better compared to yesterday. He denies any abdominal or back pain at this time. His tremors are still present, but improved compared to yesterday. Patient given nicotine patch today. He reports he uses chewing tobacco approximately 1 can/day with a few cigarettes. Blood pressures are improving. I reviewed the results of CT abdomen and pelvis from 12/18 with patient's . All family questions and concerns were answered. Physical Exam Physical Exam: General: Positive tremors, improved. Nondiaphoretic, well-developed, well- nourished. Skin: The skin was without rashes, erythema, edema, or bruising. Cardiac: Regular rate and rhythm without murmurs gallops or rubs. Pulm: Clear to auscultation bilaterally without wheezes, rales or rhonchi. Some diminished breath sounds in the lower lobes bilaterally. No retractions or accessory muscle use. Abdominal: Positive bowel sounds x 4. Soft, without masses or organomegaly. Mild epigastric and left-sided tenderness to palpation. Neuro: A&O x3. No focal neurological deficits. Results & Data Results & Data Vital Signs (Past 12 Hours) Vital Signs Temp Pulse Pulse Resp BP Pulse Ox O2 Del Method 12/22/23 16:30 36.8 C 78 20 163/81 H 96 Nasal Cannula 12/22/23 15:37 87 12/22/23 11:26 Room Air 12/22/23 11:25 36.7 C 83 18 174/89 H 98 Oxymask 12/22/23 10:24 72 12/22/23 07:46 36.8 C 76 20 192/104 H 97 Oxymask O2 Flow Rate 12/22/23 16:30 2 12/22/23 15:37 12/22/23 11:26 12/22/23 11:25 2 12/22/23 10:24 12/22/23 07:46 2 Laboratory Results Reviewed CBC Reviewed BMP PG Care Time/CCT Total # of Minutes Spent Total Time Spent with Patient: Total time spent is greater than 50% in coordination of care (as documented) at patient's floor/unit and/or counseling patient: Coding Level of Care Code 18343 SUB INP/OBS CARE 3/50MIN Diagnoses Alcohol withdrawal F10.939 Gastritis K29.70 Pneumonitis J98.4 Controlled type 2 diabetes mellitus with microalbuminuria, with long-term current use of insulin E11.29; R80.9; Z79.4 Diabetes mellitus long-term insulin use: with long-term use Diabetes mellitus complication status: with kidney complications Diabetes mellitus complication detail: with microalbuminuria COPD (chronic obstructive pulmonary disease) J44.9 Chronic pain G89.29 Arnold-Chiari malformation, type I G93.5 (4) Diabetes mellitus type 2, controlled Diabetes mellitus long-term insulin use: with long term care social worker use Diabetes mellitus complication status: with kidney complications Diabetes mellitus complication detail: with microalbuminuria Qualified Code(s): E11.29 - Type 2 diabetes mellitus with other diabetic kidney complication; R80.9 - Proteinuria, unspecified; Z79.4 - terminal manager (current) use of insulin
[2023-12-23] MEDS: LABETALOL HCL IV 5 MG/ML 20ML IV PRN (01:43)
[2023-12-23] MEDS: OLANZapine 10 MG/2.1 ML SDV IM STA (05:29)
--- NOTE | 2023-12-23 06:00 | Communication Note ---
Date of Service: December 23, 2023 I was notified by nursing that Mr. Marsh had received Ativan 2mg IV x3 doses throughout the night due to AWSS scores of 9, this is in addition to scheduled Librium and Gabapentin as well as his prescribed Suboxone. His BP has remained elevated at approximately 180+/100+ throughout the night despite labetalol and a PRN hydralazine. I was notified by nursing at 5a.m. that Mr. Marsh had become increasingly agitated and was demanding to leave. I went to bedside and Mr. Marsh had removed his heart monitor and was trying to get dressed in his clothes from home. I asked why he wanted to leave and he stated that we are "keeping him here" and "it is humiliating", he also stated that he doesn't know what we are doing for him and "it's like a science fiction movie". Nursing at bedside recalled that he has had some hallucinations on and off. Mr. Marsh was experiencing tremors and was very restless and anxious during this encounter. AWSS score of 10 at this time. I updated the attending physician of his worsening symptoms of withdrawal and lack of response to the Ativan 2mg IV. We discussed trialing IM Zyprexa- upon discussion with Mr. Marsh about why we are trying Zyprexa, he was agreeable to an injectable medication. I ordered Zyprexa 5mg IM. Mr. Marsh tolerated this injection and after several minutes he was agreeable to remove his shoes and move his bag/clothing items off of the bed. He subsequently agreed to try to lay down in bed and rest. As Mr. Marsh was starting to settle, the powdered metal supervisor came to bedside for morning blood work- I asked for blood work to be postponed to a later time. His 6:00a.m. dose of Librium was also due at this time- I also asked his nurse to hold this medication at this time as I did not want to blood work and administering this PO medication to re-aggravate. I also ordered his IV fluids to be held at this time. If Mr. Marsh experiences additional aggravation I would administer an additional Zyprexa 5mg IM, if this is not helpful and his symptoms worsen I anticipate that he may require phenobarbital or Precedex/ICU management for withdrawal symptoms.
--- NOTE | 2023-12-23 07:33 | Hospitalist Progress Note ---
Date of Service December 23, 2023 Assessment & Plan (1) Alcohol withdrawal: Plan: Severe ETOH Withdrawal on admission with patient requesting detox. - Patient drinking 1/5 of liquor per day for up to a year with no alcohol free days in over a year - Etoh on admit 134.4 - tremulous and diaphoretic on admission IM olanzapine this AM for severe agitation, HTN, tachycardia despite high doses IV lorazepam. BP/HR improved add seroquel 25 mg q8h starting 1pm to help manage agitation. increase gabapentin back to tid AM labs delayed to avoid more agitation - reviewed bmp cbc, unremarkable - AWSS Ativan - 8 mg IV last 24h - Librium 25 mg Q8H - inc gabapentin back to 600 tid - add seroquel 25 tid - Continue thiamine and folic acid IV every morning - Continue clonidine for hypertension - Hydralazine as needed with hypertension parameters - Metoprolol as needed with tachycardia and hypertension parameters - Zofran as needed for nausea - Nicotine patch for nicotine withdrawal (2) Gastritis: Plan: Abdominal Pain, mesenteritis/gastritis vs pancreatitis 2/2 ETOH use - Suspect gastritis/mesenteritis with ETOH use. DDx includes etoh induced pancreatitis, although lipiase is minimally elevated for this and CT more consistent with enteritis - PPI daily - Pepcid BID (3) Pneumonitis: Plan: Aspiration Pneumonitis - W/ aspiration events in the setting of etoh use - Afebrile, no leukocytosis, not requiring supp O2. No e/o pneumonia at this time (4) Diabetes mellitus type 2, controlled: Plan: - glargine 20u - SSI - BSG at goal last 24h (5) COPD (chronic obstructive pulmonary disease): Plan: - Continue inhaler/formulary equivalent - No wheezing (6) Chronic pain: Plan: Hx chronic pain, opioid dependence - Continue suboxine - Continue clonidine (7) Arnold-Chiari malformation, type I: Plan: Noted Plan thrombocytopenia resolved - was caused by EtOH bone marrow suppression mild alcoholic hepatitis based on labs early this admission - resolved AM BMP, mag DVT PPx: enoxaparin CODE STATUS: Full code Admission and Anticipated Discharge Date Admission Date: December 19, 2023 Subjective IM olanzapine this AM for severe agitation, HTN. tachycardic despite high doses IV lorazepam A little better this AM, still anxious and tremulous, BP improved Physical Exam 2 Physical Exam: PHYSICAL EXAMINATION Last 24h vital signs reviewed, see documentation in flowsheet General: sitting on edge of bed HEENT: Normocephalic, atraumatic, pupils round and equal, sclerae anicteric, no conjunctival injection, moist mucus membranes Lungs: Normal respiratory effort. Clear to auscultation bilaterally. No RRW Heart: Regular rate and rhythm mildtachy, no murmurs. No JVD Abdomen: Soft, nontender, nondistended. Bowel sounds present. Extremities: Warm, dry, well-perfused. No extremity edema. Neuro: Alert and oriented x 4, face symmetric, tremulous, skin w/d, moves 4 extremities well Psych: anxious affect and normal behavior Results & Data Results & Data Vital Signs (Past 12 Hours) Vital Signs Temp Pulse Pulse Resp BP BP BP 12/23/23 03:39 24 179/102 H 12/23/23 02:00 24 170/109 H 12/23/23 02:00 77 170/109 H 12/23/23 01:43 92 H 202/125 H 12/23/23 01:40 36.6 C 93 H 24 202/125 H 12/23/23 00:09 24 196/117 H 12/22/23 23:25 37.2 C 93 H 22 188/104 H 12/22/23 20:00 12/22/23 19:42 36.9 C 87 20 170/107 H Pulse Ox O2 Del Method 12/23/23 03:39 12/23/23 02:00 93 Room Air 12/23/23 02:00 12/23/23 01:43 12/23/23 01:40 12/23/23 00:09 12/22/23 23:25 93 Room Air 12/22/23 20:00 Room Air 12/22/23 19:42 93 Room Air Laboratory Results 12/23/23 07:22 12/23/23 07:22 PG Care Time/CCT Total # of Minutes Spent Total Time Spent with Patient: Total time spent is greater than 50% in coordination of care (as documented) at patient's floor/unit and/or counseling patient: Coding Level of Care Code 03036 SUB INP/OBS CARE 3/50MIN Diagnoses Alcohol withdrawal F10.939 Gastritis K29.70 Pneumonitis J98.4 Controlled type 2 diabetes mellitus with microalbuminuria, with long-term current use of insulin E11.29; R80.9; Z79.4 Diabetes mellitus complication detail: with microalbuminuria Diabetes mellitus complication status: with kidney complications Diabetes mellitus longterm insulin use: with superintendent container terminal use COPD (chronic obstructive pulmonary disease) J44.9 Chronic pain G89.29 Arnold-Chiari malformation, type I G93.5 (4) Diabetes mellitus type 2, controlled Diabetes mellitus complication detail: with microalbuminuria Diabetes mellitus complication status: with kidney complications Diabetes mellitus superintendent container terminal insulin use: with longterm use Qualified Code(s): E11.29 - Type 2 diabetes mellitus with other diabetic kidney complication; R80.9 - Proteinuria, unspecified; Z79.4 - supervisor intermediates (current) use of insulin
[2023-12-23 08:06] LABS: Hematocrit (blood only) 39.5 % (42.0-52.0); Mean Corpuscular Hemoglobin 33.4 pg (25.0-34.0); Mean Corpuscular Hgb Conc 35.4 g/dL (32.0-36.0); Mean Corpuscular Volume 94.3 fL (80.0-100.0); Mean Platelet Volume 9.5 fL (9.4-12.4); Platelet Count 148 K/uL (130-400); RDW Coefficient of Variation 12.5 % (11.5-14.5); RDW Standard Deviation 43.3 fL (36.4-46.3); Red Blood Count 4.19 M/uL (4.70-6.10); White Blood Count 5.68 K/ul (4.8-10.8)
[2023-12-23 08:14] LABS: BUN Creatinine Ratio 12.2 (10-20); Calcium 10.1 mg/dl (8.6-10.3); Creatinine Clr Calc Pharmacy 106.4 ml/min; Est GFR (African American) 109.1 ml/min; Est GFR (Non-African American) 94.1 ml/min; Potassium 3.9 mmol/L (3.5-5.1)
[2023-12-23] MEDS: GABAPENTIN 600 MG TAB PO SCH (08:20)
[2023-12-23] MEDS: QUEtiapine FUMARATE 25 MG TABLET PO SCH (15:00)
[2023-12-23] MEDS ORDERED: chlordiazePOXIDE HCl 5 MG CAP PO SCH (18:00)
[2023-12-23] MEDS ORDERED: GABAPENTIN 600 MG TAB PO SCH (20:00)
[2023-12-24 06:03] LABS: BUN Creatinine Ratio 12.8 (10-20); Calcium 9.7 mg/dl (8.6-10.3); Creatinine Clr Calc Pharmacy 80.1 ml/min; Est GFR (African American) 83.3 ml/min; Est GFR (Non-African American) 71.9 ml/min; Magnesium 1.7 mg/dl (1.7-2.4); Potassium 3.8 mmol/L (3.5-5.1)
[2023-12-24] MEDS ORDERED: QUEtiapine FUMARATE 25 MG TABLET PO PRN (12:50)
--- NOTE | 2023-12-24 12:57 | Hospitalist Progress Note ---
Date of Service December 24, 2023 Assessment & Plan (1) Alcohol withdrawal: Plan: Severe ETOH Withdrawal on admission with patient requesting detox. - Patient drinking 1/5 of liquor per day for up to a year with no alcohol free days in over a year - Etoh on admit 134.4 - tremulous and diaphoretic on admission plan: - AWSS Ativan - 6 mg IV last 24h, was a bit too sedated overnight with scheduled gabapentin and seroquel. stopped gabapentin and changed seroquel to q12h prn - Librium 25 mg Q8H - continue - oral thiamine, folate - Continue clonidine for hypertension - Hydralazine as needed with hypertension parameters - Metoprolol as needed with tachycardia and hypertension parameters - Zofran as needed for nausea - Nicotine patch for nicotine withdrawal Has turned the corner and started clearly improving. May still require some IV lorazepam at this point, anticipate home in 1-3 days (2) Gastritis: Plan: Abdominal Pain, mesenteritis/gastritis vs pancreatitis 2/2 ETOH use - Suspect gastritis/mesenteritis with ETOH use. DDx includes etoh induced pancreatitis, although lipiase is minimally elevated for this and CT more consistent with enteritis - PPI daily - Pepcid BID - no complaint of abdominal pain last 48h (3) Pneumonitis: Plan: Aspiration Pneumonitis - W/ aspiration events in the setting of etoh use - Afebrile, no leukocytosis, not requiring supp O2. No e/o pneumonia at this time (4) Diabetes mellitus type 2, controlled: Plan: - glargine 20u - SSI - BSG at goal 12/23 (5) COPD (chronic obstructive pulmonary disease): Plan: - Continue inhaler/formulary equivalent - No wheezing (6) Chronic pain: Plan: Hx chronic pain, opioid dependence - Continue suboxine - Continue clonidine (7) Arnold-Chiari malformation, type I: Plan: Noted Plan thrombocytopenia resolved - was caused by EtOH bone marrow suppression mild alcoholic hepatitis based on labs early this admission - resolved BMP reviewed today and was unremarkable - normal renal function and electrolytes AM BMP, mag DVT PPx: enoxaparin CODE STATUS: Full code Admission and Anticipated Discharge Date Admission Date: December 19, 2023 Subjective Slept all night and was somewhat sedated, no IV lorazepam given overnight (but 8 mg yesterday in day) Awake and alert this AM, continues to be tremulous. Less anxious and calmer today, less impulsive Physical Exam 2 Physical Exam: PHYSICAL EXAMINATION Last 24h vital signs reviewed, see documentation in flowsheet General: sitting up in bed HEENT: Normocephalic, atraumatic, pupils round and equal, sclerae anicteric, no conjunctival injection, moist mucus membranes Lungs: Normal respiratory effort. Clear to auscultation bilaterally. No RRW Heart: Regular rate and rhythm, no murmurs. No JVD Abdomen: Soft, nontender, nondistended. Bowel sounds present. Extremities: Warm, dry, well-perfused. No extremity edema. Neuro: Alert and oriented x 4, calmer and less impulsive, face symmetric, remains tremulous, skin w/d, moves 4 extremities well Psych: normal affect and normal behavior Results & Data Results & Data Vital Signs (Past 12 Hours) Vital Signs Temp Pulse Resp BP Pulse Ox O2 Del Method 12/24/23 08:00 36.8 C 78 20 158/84 H 96 Room Air Laboratory Results 12/23/23 07:22 12/24/23 05:24 PG Care Time/CCT Total # of Minutes Spent Total Time Spent with Patient: Total time spent is greater than 50% in coordination of care (as documented) at patient's floor/unit and/or counseling patient: Coding Level of Care Code 25449 SUB INP/OBS CARE 2/35MIN Diagnoses Alcohol withdrawal F10.939 Gastritis K29.70 Pneumonitis J98.4 Controlled type 2 diabetes mellitus with microalbuminuria, with long-term current use of insulin E11.29; R80.9; Z79.4 Diabetes mellitus half-way insulin use: with half-way use Diabetes mellitus complication status: with kidney complications Diabetes mellitus complication detail: with microalbuminuria COPD (chronic obstructive pulmonary disease) J44.9 Chronic pain G89.29 Arnold-Chiari malformation, type I G93.5 (4) Diabetes mellitus type 2, controlled Diabetes mellitus half-way insulin use: with half-way use Diabetes mellitus complication status: with kidney complications Diabetes mellitus complication detail: with microalbuminuria Qualified Code(s): E11.29 - Type 2 diabetes mellitus with other diabetic kidney complication; R80.9 - Proteinuria, unspecified; Z79.4 - mat sewer (current) use of insulin
[2023-12-24] MEDS: tiZANidine HCL 4 MG TABLET PO SCH (13:50)
[2023-12-24] MEDS: ATORVASTATIN 20 MG TAB PO SCH (20:09)
[2023-12-24] MEDS: ACETAMINOPHEN 325 MG TAB PO STA (21:55)
[2023-12-25 07:24] LABS: Calcium 10.3 mg/dl (8.6-10.3); Creatinine Clr Calc Pharmacy 87.2 ml/min; Est GFR (African American) 92.4 ml/min; Est GFR (Non-African American) 79.7 ml/min; Magnesium 1.9 mg/dl (1.7-2.4); Potassium 4.1 mmol/L (3.5-5.1)
[2023-12-25] MEDS: THIAMINE HCL 100 MG TAB PO SCH (08:32)
[2023-12-25] MEDS: FOLIC ACID 1 MG TAB PO SCH (08:34)
[2023-12-25] MEDS: CYANOCOBALAMIN (B-12) 500 MCG TABLET PO SCH (08:34)
--- NOTE | 2023-12-25 12:46 | Hospitalist Progress Note ---
Date of Service December 25, 2023 Assessment & Plan (1) Alcohol withdrawal: Plan: Severe ETOH Withdrawal on admission with patient requesting detox. - Patient drinking 1/5 of liquor per day for up to a year with no alcohol free days in over a year - Etoh on admit 134.4 - tremulous and diaphoretic on admission plan: - AWSS Ativan - none since yesterday 4pm - Librium 25 mg Q8H - continue and taper - oral thiamine, folate - Continue clonidine for hypertension - Nicotine patch for nicotine withdrawal - resumed his usual tizanidine dose 12/23 as this can also cause a withdrawal syndrome Did not require IV lorazepam or any PRNs throughout this morning but unsteady walking and has been using walker - ordered PT/OT eval Home soon, possibly later today vs tomorrow depending on whether he is steady enough (2) Gastritis: Plan: Abdominal Pain, mesenteritis/gastritis vs pancreatitis 2/2 ETOH use - Suspect gastritis/mesenteritis with ETOH use. DDx includes etoh induced pancreatitis, although lipiase is minimally elevated for this and CT more consistent with enteritis - PPI daily - Pepcid BID - resolved (3) Pneumonitis: Plan: Aspiration Pneumonitis - W/ aspiration events in the setting of etoh use - Afebrile, no leukocytosis, not requiring supp O2. No e/o pneumonia at this time (4) Diabetes mellitus type 2, controlled: Plan: - glargine 20u - SSI - BSG at goal 12/24 (5) COPD (chronic obstructive pulmonary disease): Plan: - Continue inhaler/formulary equivalent - No wheezing (6) Chronic pain: Plan: Hx chronic pain, opioid dependence - Continue suboxine - Continue clonidine (7) Arnold-Chiari malformation, type I: Plan: Noted Plan thrombocytopenia resolved - was caused by EtOH bone marrow suppression mild alcoholic hepatitis based on labs early this admission - resolved BMP reviewed 12/24 remains unremarkable - normal renal function and electrolytes DVT PPx: enoxaparin CODE STATUS: Full code Admission and Anticipated Discharge Date Admission Date: December 19, 2023 Subjective was a bit sleepy when I came in but doing better, much less tremulous, last IV lorazepam around 4pm yesterday remains on tid librium po Physical Exam 2 Physical Exam: PHYSICAL EXAMINATION Last 24h vital signs reviewed, see documentation in flowsheet General: woke up from sleeping HEENT: Normocephalic, atraumatic, pupils round and equal, sclerae anicteric, no conjunctival injection, moist mucus membranes Lungs: Normal respiratory effort. Clear to auscultation bilaterally. No RRW Heart: Regular rate and rhythm, no murmurs. No JVD Abdomen: Soft, nontender, nondistended. Bowel sounds present. Extremities: Warm, dry, well-perfused. No extremity edema. Neuro: Mildly groggy and oriented x 4, calm, face symmetric, only mildly tremulous, skin w/d, moves 4 extremities well Psych: normal affect and normal behavior Results & Data Results & Data Vital Signs (Past 12 Hours) Vital Signs Temp Pulse Pulse Resp BP BP Pulse Ox 12/25/23 11:01 36.6 C 81 17 140/82 95 12/25/23 07:17 36.8 C 85 19 141/85 H 94 12/25/23 03:11 36.9 C 83 20 141/83 H 94 O2 Del Method 12/25/23 11:01 Room Air 12/25/23 07:17 Room Air 12/25/23 03:11 Room Air Laboratory Results 12/23/23 07:22 12/25/23 06:40 PG Care Time/CCT Total # of Minutes Spent Total Time Spent with Patient: Total time spent is greater than 50% in coordination of care (as documented) at patient's floor/unit and/or counseling patient: Coding Level of Care Code 26047 SUB INP/OBS CARE 2/35MIN Diagnoses Alcohol withdrawal F10.939 Gastritis K29.70 Pneumonitis J98.4 Controlled type 2 diabetes mellitus with microalbuminuria, with long-term current use of insulin E11.29; R80.9; Z79.4 Diabetes mellitus termite renewal inspector insulin use: with care home use Diabetes mellitus complication status: with kidney complications Diabetes mellitus complication detail: with microalbuminuria COPD (chronic obstructive pulmonary disease) J44.9 Chronic pain G89.29 Arnold-Chiari malformation, type I G93.5 (4) Diabetes mellitus type 2, controlled Diabetes mellitus termite renewal inspector insulin use: with care home use Diabetes mellitus complication status: with kidney complications Diabetes mellitus complication detail: with microalbuminuria Qualified Code(s): E11.29 - Type 2 diabetes mellitus with other diabetic kidney complication; R80.9 - Proteinuria, unspecified; Z79.4 - rodent exterminator (current) use of insulin
[2023-12-26] MEDS: ALBUTEROL 0.083% NEBU SOLN 3 ML VIAL INH PRN (02:27)
--- NOTE | 2023-12-26 19:13 | Discharge Summary ---
Date of Service December 26, 2023 Admission HPI Per Admitting Provider 63yo M with a PMHx of etoh abuse who presents with 2 weeks of intermittent Left abdominal and L flank pain which has worsened in the last 3 days. Ibuprofen 600mg use Feels that he is withdrawing, endorses nausea dn tremors. Requests detox. CT-A/p: 1. No bowel obstruction or bowel wall thickening. 2. Right basilar opacities redemonstrated suggestive of aspiration pneumonitis. 3. Hepatosplenomegaly with hepatic steatosis. 4. Mild inflammatory stranding within the mesenteric root surrounding the uncinate process of the pancreas is likely secondary to a low-grade chronic mesenteritis. Correlate with lipase level to exclude the less likely possibility of acute pancreatitis.5. Cholelithiasis. 6. Additional findings as above. Lipase 128 Seen at the bedside. Drinking 1/5th of liquor per day. Last time he went more than 1-2 days without ETOH was 'a very long time, over a year maybe years.' Mid left back pain or 1-2 weeks. Has not had pain like that before 2 weeks ago. No prior hisory of pancreatitis. No history of seizures. He has had withdrawal symptoms over the past few months in the mornings, that improve when he dirnks more alcohol No fever, chills, sweats Minimal cough, but has been more short of breath than normal. no chest pain or pressure. Endorses flank pain, in addition to this has some epigastric discomfort and nausea/dry heaves No diarrhea. + constipatoin Still takes clonidine for htn, and suboxone for chronic pain Hx of COPD well controlled. Quit smoking 1 month ago, smoked cigarettes for 'a very long time' about 1pack per week. Takes long acting insulin at night for DM. Started drinking again after had headaches related to a Adriana malformation and cyst, and drank because felt improved. Was seeing Dr. Yeung neurology. Principal Diagnosis Severe acute alcohol with delirium Discharge Exam PHYSICAL EXAMINATION Last 24h vital signs reviewed, see documentation in flowsheet General: awake alert sitting up in bed HEENT: Normocephalic, atraumatic, pupils round and equal, sclerae anicteric, no conjunctival injection, moist mucus membranes Lungs: Normal respiratory effort. Clear on L, R sided posterior crackles unchanged. No wheezing Heart: Regular rate and rhythm, no murmurs. No JVD Abdomen: Soft, nontender, nondistended. Bowel sounds present. Extremities: Warm, dry, well-perfused. No extremity edema. Neuro: A and oriented x 4, calm, face symmetric, only mildly tremulous, skin w/d, moves 4 extremities well Psych: normal affect and normal behavior Discharge Data Allergies Allergy/AdvReac Type Severity Reaction Status Date / Time labetalol Allergy Unknown Unknown Verified 12/19/23 17:39 methylprednisolone AdvReac Intermediate PSYCHOTIC Verified 12/19/23 17:39 FEATURES WITH HIGH DOSES prednisone AdvReac Intermediate PSYCHOTIC Verified 12/19/23 17:39 FEATURES WITH HIGH DOSES Consultations 12/19/23 18:59 ED Decision to Admit Stat Ordered Studies 12/19/23 15:42 CT Abd and Pelvis [CT abd pelvis wo con] Stat Abdomen/Pelvis CT 12/19/23 15:[address] WITHOUT CONTRAST CT DOSE: 1353.86 mGy.cm HISTORY: Acute left-sided flank pain L flank pain TECHNIQUE: Multiaxial CT images of the abdomen and pelvis were performed without contrast. A dose lowering technique was utilized adhering to the principles of ALARA. COMPARISON STUDY: 11/13/2023, 06/15/2016 FINDINGS: Cardiomegaly with coronary arterial calcifications. Patchy groundglass and consolidative opacities in the right lung base again noted with areas of bronchial wall thickening. Mild left basilar atelectasis. There is no free air. The spleen is enlarged measuring up to 14 cm. The liver is enlarged measuring up to approximately 20 cm. Hepatic steatosis. No evidence of cirrhosis. Cholelithiasis without CT evidence of acute cholecystitis. Unremarkable adrenal glands. Mild inflammatory stranding near the mesenteric root/uncinate process. Cortical thinning of the kidneys with bilateral perinephric stranding. No hydronephrosis. Partial distention of the urinary bladder with mild wall thickening. Borderline enlarged prostate. Atherosclerosis of the aorta without aneurysm. Mild nonspecific distal esophageal wall thickening. No bowel traction. Colonic diverticulosis. Chronic likely benign fatty attenuating structure with calcifications measuring 2 cm noted adjacent to the distal descending colon. Mild colonic fecal retention. Normal appendix. No acute fracture. IMPRESSION: 1. No bowel obstruction or bowel wall thickening. 2. Right basilar opacities redemonstrated suggestive of aspiration pneumonitis. 3. Hepatosplenomegaly with hepatic steatosis. 4. Mild inflammatory stranding within the mesenteric root surrounding the uncinate process of the pancreas is likely secondary to a low-grade chronic mesenteritis. Correlate with lipase level to exclude the less likely possibility of acute pancreatitis. 5. Cholelithiasis. 6. Additional findings as above. ACT 112: Negative or not required by law. The above report was generated using voice recognition software. It may contain grammatical, syntax or spelling errors. Electronically signed by: Markus Epstein M.D. 12/19/2023 4:32 PM 12/23/23 07:22 12/25/23 06:40 Hospital Course (1) Alcohol withdrawal: Severe ETOH Withdrawal on admission with patient requesting detox. Severe alcohol use disorder. - drinking 1/5 of liquor per day for up to a year with no alcohol free days in over a year. Previously was sober 30 years. - Etoh on admit 134.4 - tremulous and diaphoretic on admission Had severe alcohol withdrawal and required 6+ days of IV lorazepam, chlordiazepoxide and adjuncts such as gabapentin, olanzapine, and antihypertensives for management of withdrawal. 12/24 did not require IV lorazepam but was unsteady on his feet. This resolved and he was independent per PT/OT on 12/25. No IV lorazepam for 48h prior to discharge but remains on chlordiazepoxide 25 mg tid -discharged with taper over 1 week - resumed his usual tizanidine dose 12/23 as this can also cause a withdrawal syndrome Counseled cessation - he is well aware of local rehab resources. I asked him to consider MAT with naltrexone - he will follow up with his suboxone provider regarding this. (2) Gastritis: Abdominal Pain, mesenteritis/gastritis vs pancreatitis 2/2 ETOH use - Suspect gastritis/mesenteritis with ETOH use. DDx includes etoh induced pancreatitis, although lipiase is minimally elevated for this and CT more consistent with enteritis - treated with PPI, resolved (3) Pneumonitis: Aspiration Pneumonitis - W/ aspiration events in the setting of etoh use - Afebrile, no leukocytosis, not requiring supp O2. No e/o pneumonia at this time. Continues to have R crackles on lung exam but resolving. (4) Diabetes mellitus type 2, controlled: (5) COPD (chronic obstructive pulmonary disease): (6) Chronic pain: Hx chronic pain, opioid dependence - Continue suboxine - Continue clonidine (7) Arnold-Chiari malformation, type I: Noted Plan thrombocytopenia resolved - was caused by EtOH bone marrow suppression mild alcoholic hepatitis based on labs early this admission - resolved BMP reviewed 12/24 remains unremarkable - normal renal function and electrolytes Total Time Total Time Spent Total Time Spent (In Minutes): <30 minutes Discharge Plan Discharge Items Patient Disposition: Home - Self-Care Reason For Visit: SEVERE ETOH WITHDRAWAL Discharge Diagnosis: Severe alcohol withdrawal with delirium Activity: Resume your previous activity Non-emergency contact: Primary Care Provider Call non-emergency contact if: you have any medication questions and your symptoms worsen Follow-up/Referrals: Xochitl Olmedo MD [Primary Care Provider] - 01/03/24 11:00 am Diet: Carb Consistent or DM2 Addtl Attending Provider Instructions: You were treated for severe alcohol withdrawal You also had some mild alcohol related gastritis and/or pancreatitis that has resolved Continue the tapering dose of chlordiazepoxide We recommend starting an alcohol rehab program for more support and consider medication-assisted treatment like naltrexone It was a pleasure taking care of you in the hospital Karyna Mcelroy MD Pending Studies at Discharge: No Stand-Alone Forms: My [facility] MedPro, Smoking Cessation Medications and DC Order Prescriptions: New nicotine [Nicoderm CQ] 21 mg/24 hr Patch 24 Hour 1 patch transdermal QAM Qty: 0 0RF Rx Instructions: buy over the counter, use as directed thiamine HCl (vitamin B1) 100 mg Tablet 100 mg PO QAM Qty: 30 0RF folic acid 1 mg Tablet 1 mg PO QAM Qty: 30 0RF chlordiazepoxide HCl 25 mg Capsule See Taper PO Q8H Qty: 12 0RF Taper: Taper, Blank 25 mg Q8H for 1 Day 25 mg Q12H for 3 Days 25 mg DAILY for 3 Days Continued albuterol sulfate 90 mcg/actuation HFA aerosol inhaler 2 puff INHALATION Q6H PRN (Reason: Wheezing) Qty: 6.7 2RF testosterone 20.25 mg/1.25 gram (1.62 %) gel in metered-dose pump See Rx Instructions TD DAILY Qty: 75 5RF Dose Instruction: apply 3 pumps daily TD DAILY; Rx Instructions: apply 2 pumps daily 05/04/23 PDMP Queried ok to fill, TR sertraline [Zoloft] 100 mg tablet 150 mg PO QAM Qty: 135 1RF atorvastatin 20 mg tablet 20 mg PO HS Qty: 90 3RF lisinopril 40 mg tablet 40 mg PO DAILY Qty: 90 3RF clonidine HCl 0.1 mg tablet 0.1 mg PO DAILY Qty: 30 5RF insulin glargine [Basaglar KwikPen U-100 Insulin] 100 unit/mL (3 mL) insulin pen 30 unit SUBCUT HS Qty: 15 3RF (DME) pen needle, diabetic [BD Ultra-Fine Mini Pen Needle] 31 gauge x 3/16" needle See Rx Instructions .ROUTE .COMPLEX Qty: 100 1RF Dose Instruction: USE ONCE DAILY DIRECTED Rx Instructions: USE ONCE DAILY DIRECTED fluticasone furoate-vilanterol [Breo Ellipta] 100-25 mcg/dose blister with device 1 inh INH QAM Qty: 28 5RF (DME) OneTouch Verio test strips Strip See Rx Instructions .Route Qty: 50 5RF Rx Instructions: As directed to test blood sugar once a day; E11.9 tizanidine 2 mg capsule 2 mg PO Q12H PRN (Reason: Muscle Spasm) Qty: 180 1RF albuterol sulfate 2.5 mg /3 mL (0.083 %) solution for nebulization 2.5 mg INH Q6H PRN (Reason: shortness of breath or wheezing) Qty: 3 5RF cyanocobalamin (vitamin B-12) 1,000 mcg tablet, sublingual 1,000 mcg SL QAM melatonin 10 mg capsule 10 mg PO HS PRN (Reason: Sleep) spironolactone [Aldactone] 25 mg tablet 25 mg PO DAILY Qty: 90 3RF (DME) blood-glucose meter [OneTouch Verio Flex meter] Misc See Rx Instructions .Route Qty: 1 0RF Rx Instructions: As directed to test blood sugar once a day; E11.9 pantoprazole 40 mg tablet,delayed release (DR/EC) 40 mg PO DAILY Qty: 90 3RF ondansetron HCl 4 mg tablet 4 mg PO Q6H PRN (Reason: nausea and vomiting) Qty: 15 0RF buprenorphine-naloxone [Suboxone] 8-2 mg Film 1 film BUCCAL BID potassium gluconate 595 mg (99 mg) Tablet 595 mg PO DAILY clobetasol 0.05 % cream 1 applic topical DAILY PRN (Reason: Skin Irritation) bupropion HCl 100 mg tablet sustained-release 12 hr 300 mg PO QAM Rx Instructions: TAKE 3 TABLETS BY MOUTH EVERY DAY IN THE MORNING Discharge Orders: Discharge Order (Routine); Ordered 12/26/23 Ordered By: Karyna Mcelroy Admission Data Admit Date/Time: 12/19/23 20:11 Attending Provider: Karyna Mcelroy Admit Provider: Joby Sanderson Primary Care Provider: Xochitl Olmedo V. 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
== END 2023-12-26 14:09 | disposition home or self-care (01) | DRG 896 ==
LOC: ED 14:47 → 2E 20:11 → SUATTDRO 20:11 → 2E 20:57 → 3N 12-25 14:29